=== PATIENT | female | born 1970 | race Caucasian/White ===

== ENCOUNTER 2018-07-29 19:37 | Inpatient (IN) ==
[2018-07-29] MEDS ORDERED: Morphine Inj 4 MG/ML Vial IV.PUSH ONE (20:01)
--- NOTE | 2018-07-29 20:08 | ED ---
HPI General Chief complaint: Pain: Chronic Stated complaint: Flare-Up x2Days Source: patient Mode of arrival: ambulatory Limitations: no limitations History of Present Illness HPI narrative: 48yo F with PMH of questionable psoriatic arthritis presents to the ED with c/o a flare up for 3 days. Pt's entire body is covered with painful erythematous rash including her lips. Pt said she took celecoxib and it did not help. 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 Said it has never been this bad. +Nausea. Denies any fever, chest pain, sob, abdominal pain, focal weakness or numbness. Denies any new medication. Related Data Home Medications Medication Instructions Recorded Confirmed Probiotic 07/29/18 celecoxib 07/29/18 krill oil 07/29/18 milk thistle 07/29/18 Allergies Allergy/AdvReac Type Severity Reaction Status Date / Time bee venom protein (honey bee) Allergy Severe Anaphylaxis Verified 07/29/18 23:16 prednisone Allergy Severe Blister Verified 07/29/18 23:16 Review of Systems ROS: all other systems reviewed are negative [facility] Medical History Medical History Psoriasis (Acute) Psoriatic arthritis (Acute) Social History Social History Substance History: No History of Abuse Second Hand Smoke Exposure: Yes Smoking Status: Former smoker Tobacco Type: Cigarettes How Often Do You Have a Drink Containing Alcohol: Monthly or less Recent Travel in [facility] within the Last 8 Weeks: No Recent Out of Country Travel within the Last 8 Weeks: No Exam Narrative Exam Narrative: GENERAL: 48yo F in moderate distress. SKIN: Diffuse erythematous plaques in her body except for face but worst in bilateral upper extremities. HEAD: Atraumatic. Normocephalic. EYES: Pupils equal and round. No scleral icterus. No injection or drainage. ENT: No nasal bleeding or discharge. Lips are erythematous but not edematous. NECK: Trachea midline. No JVD. CARDIOVASCULAR: Regular rate and rhythm. No murmur appreciated. RESPIRATORY: No accessory muscle use. Clear to auscultation. Breath sounds equal bilaterally. GASTROINTESTINAL: Abdomen soft, non-tender, nondistended. MUSCULOSKELETAL: No obvious deformities. No clubbing. No cyanosis. No edema. NEUROLOGICAL: Awake and alert. No obvious cranial nerve deficits. Motor grossly within normal limits. Normal speech. PSYCHIATRIC: Appropriate mood and affect; insight and judgment normal. Course Initial Documented Vital Signs Temperature 98.0 F 07/29/18 19:39 Pulse Rate 105 H 07/29/18 19:39 Respiratory Rate 18 07/29/18 19:39 Pulse Oximetry 98 07/29/18 19:39 Last Documented Vital Signs Temperature 97.5 F L 07/30/18 00:48 Pulse Rate 98 H 07/30/18 00:48 Respiratory Rate 20 07/30/18 00:48 Blood Pressure 123/57 L 07/30/18 00:48 Pulse Oximetry 99 07/30/18 00:48 Critical Care Time Critical Care Time: Yes Total Critical Care Time: 35 Attestation: Aggregate critical care time was 35 minutes. Time to perform other separately billable procedures was not included in the critical care time. My time did not include minutes spent treating any other patients simultaneously or on activities that did not directly contribute to the patient's treatment. The services I provided to this patient were to treat and/or prevent clinically significant deterioration that could result in: cardiovascular collapse or . I provided critical care services requiring my management, as noted below: Chart data review, documentation time, medication orders and management, vital sign assessments/reviewing monitor data, ordering and reviewing lab tests, ordering and interpreting/reviewing x-rays and diagnostic studies, care of the patient and discussion of the patient with the admitting physicians. Medical Decision Making MDM Narrative Medical decision making narrative: 48yo F who self diagnosed herself for psoriatic arthritis here with diffuse rash that is painful and worsening for 3 days. There is a little weeping in right arm. Rash is diffuse and involves mucosa including lips and vagina. Pt's arms are covered with rash and the only place on her skin that is available for IV access is her foot so I ask the nurse to place on her foot. Labs reviewed, leukocytosis at 33.8. Creatinine elevated at 1.40. Mild hyponatremia at 132. Pt given NS IVF and morphine for pain. Will cover with antibiotics and admit for ID evaluation. Medical Screen Exam Complete: Yes Emergency Medical Condition: Yes Differential Diagnosis Differential Diagnosis: José Miguel Ady syndrome vs. TENS vs. vasculitis Lab Data Result diagrams: 07/29/18 20:41 07/29/18 20:41 Lab Results 07/29/18 07/29/18 07/29/18 Range/Units 20:41 20:41 20:41 CBC w Diff Slide review pending WBC 33.8 H (4.0-11.0) th/mm3 RBC 5.36 H (4.00-5.30) mil/mm3 Hgb 14.4 (11.6-15.3) gm/dL Hct 43.3 (35.0-46.0) % MCV 80.7 (80.0-100.0) fL MCH 26.9 L (27.0-34.0) pg MCHC 33.3 (32.0-36.0) % RDW 16.5 (11.6-17.2) % Plt Count 302 (150-450) th/mm3 MPV 9.5 (7.0-11.0) fL Neut % (Auto) 94.5 H (16.0-70.0) % Lymph % (Auto) 2.1 L (9.0-44.0) % [place] % (Auto) 1.9 (0.0-8.0) % Eos % (Auto) 0.5 (0.0-4.0) % Baso % (Auto) 1.0 (0.0-2.0) % Neut # (Auto) 32.0 H (1.8-7.7) th/mm3 Lymph # (Auto) 0.7 L (1.0-4.8) th/mm3 [place] # (Auto) 0.6 (0.0-0.9) th/mm3 Eos # (Auto) 0.2 (0.0-0.4) th/mm3 Baso # (Auto) 0.3 H (0.0-0.2) th/mm3 WBC Differential Manual diff final Seg Neuts % (Manual) 82 H (16-70) % Band Neuts % (Manual) 7 H (0-6) % Lymphocytes % (Manual) 4 L (9-44) % Monocytes % (Manual) 6 (0-8) % Eosinophils % (Manual) 1 (0-4) % Abs Neuts (Manual) 30.1 H (1.8-7.7) th/mm3 Differential Comment . Platelet Estimate Normal (Normal) Platelet Morphology Normal (Normal) ESR 1 (0-20) mm/hr Sodium 132 L (136-145) meq/L Potassium 4.5 (3.5-5.1) meq/L Chloride 96 L (98-107) meq/L Carbon Dioxide 22.0 (21.0-32.0) meq/L Anion Gap 14 (5-15) meq/L BUN 19 H (7-18) mg/dL Creatinine 1.40 H (0.50-1.00) mg/dL Estimated GFR 40 L (>89) mL/min Random Glucose 117 H (74-106) mg/dL Lactic Acid (0.4-2.0) mmol/L Calcium 8.2 L (8.5-10.1) mg/dL C-Reactive Protein 20.30 H (0.00-0.30) mg/dL 07/29/18 07/30/18 Range/Units 22:40 01:30 CBC w Diff WBC (4.0-11.0) th/mm3 RBC (4.00-5.30) mil/mm3 Hgb (11.6-15.3) gm/dL Hct (35.0-46.0) % MCV (80.0-100.0) fL MCH (27.0-34.0) pg MCHC (32.0-36.0) % RDW (11.6-17.2) % Plt Count (150-450) th/mm3 MPV (7.0-11.0) fL Neut % (Auto) (16.0-70.0) % Lymph % (Auto) (9.0-44.0) % [place] % (Auto) (0.0-8.0) % Eos % (Auto) (0.0-4.0) % Baso % (Auto) (0.0-2.0) % Neut # (Auto) (1.8-7.7) th/mm3 Lymph # (Auto) (1.0-4.8) th/mm3 [place] # (Auto) (0.0-0.9) th/mm3 Eos # (Auto) (0.0-0.4) th/mm3 Baso # (Auto) (0.0-0.2) th/mm3 WBC Differential Seg Neuts % (Manual) (16-70) % Band Neuts % (Manual) (0-6) % Lymphocytes % (Manual) (9-44) % Monocytes % (Manual) (0-8) % Eosinophils % (Manual) (0-4) % Abs Neuts (Manual) (1.8-7.7) th/mm3 Differential Comment Platelet Estimate (Normal) Platelet Morphology (Normal) ESR (0-20) mm/hr Sodium (136-145) meq/L Potassium (3.5-5.1) meq/L Chloride (98-107) meq/L Carbon Dioxide (21.0-32.0) meq/L Anion Gap (5-15) meq/L BUN (7-18) mg/dL Creatinine (0.50-1.00) mg/dL Estimated GFR (>89) mL/min Random Glucose (74-106) mg/dL Lactic Acid 2.7 H 2.9 H (0.4-2.0) mmol/L Calcium (8.5-10.1) mg/dL C-Reactive Protein (0.00-0.30) mg/dL Discharge Plan Discharge Disposition Patient Disposition: 30 Still Patient Discharge Details Diagnosis: Sepsis Physicians Team ED Provider: Tory Raines Primary Care Provider: Krissy Gallardo Attending Provider: Helena Rodgers Status ED Status: Left Department Discharge Information Discharge Date/Time: 07/30/18 00:43
[2018-07-29] MEDS ORDERED: Sod Chloride 0.9% Inj 1,000 ML IV.SIG SCH (20:15)
[2018-07-29 20:56] LABS: Potassium 4.5 meq/L (3.5-5.1)
[2018-07-29 20:58] LABS: Calcium 8.2 mg/dL (8.5-10.1)
[2018-07-29 21:35] LABS: Baso # (Auto) 0.3 th/mm3 (0.0-0.2); Eos # (Auto) 0.2 th/mm3 (0.0-0.4); Eos % (Auto) 0.5 % (0.0-4.0); Hematocrit 43.3 % (35.0-46.0); Hemoglobin 14.4 gm/dL (11.6-15.3); Lymph # (Auto) 0.7 th/mm3 (1.0-4.8); Lymph % (Auto) 2.1 % (9.0-44.0); Mean Corpuscular HGB Conc 33.3 % (32.0-36.0); Mean Corpuscular Hemoglobin 26.9 pg (27.0-34.0); Mean Corpuscular Volume 80.7 fL (80.0-100.0); Mean Platelet Volume 9.5 fL (7.0-11.0); Mono # (Auto) 0.6 th/mm3 (0.0-0.9); Mono % (Auto) 1.9 % (0.0-8.0); Neut % (Auto) 94.5 % (16.0-70.0); Platelet Count 302 th/mm3 (150-450); Red Blood Count 5.36 mil/mm3 (4.00-5.30); Red Cell Distribution Width 16.5 % (11.6-17.2); White Blood Count 33.8 th/mm3 (4.0-11.0)
[2018-07-29 21:36] LABS: Lymphocytes 4 % (9-44); Monocytes 6 % (0-8)
[2018-07-29 21:37] LABS: Eosinophils 1 % (0-4)
[2018-07-29 21:38] LABS: Platelet Estimate Normal (Normal); Platelet Morphology Normal (Normal)
[2018-07-29] MEDS ORDERED: Piperacil/Tazo 3.375 GM Premix 50 ML IV.SIG ONE (22:20)
[2018-07-29] MEDS ORDERED: Vancomycin Consult Pharmacy OTHER PRN (22:24)
[2018-07-29] MEDS ORDERED: Acetaminophen 325 MG Tablet PO PRN (22:26)
[2018-07-29] MEDS ORDERED: Bisacodyl 10 MG Supp RECTAL PRN (22:26)
[2018-07-29] MEDS ORDERED: Vancomycin Inj 1 GM/200 ML PIGGYBACK IV.SIG SCH (23:00)
[2018-07-29 23:14] LABS: C-Reactive Protein 20.3 mg/dL (0.00-0.30)
[2018-07-30] MEDS: Morphine Inj 4 MG/ML Vial IV.PUSH PRN ×2 (01:21→12:16)
[2018-07-30] MEDS: Sod Chloride 0.9% Inj 1,000 ML IV.CONT SCH ×3 (01:45→20:49)
[2018-07-30] MEDS: Vancomycin Inj 1,800 MG in Sodium Chlor 0.9% Inj 500 ML IV.SIG SCH (02:27)
[2018-07-30] MEDS: Piperacil/Tazo 3.375 GM Premix 50 ML IV.SIG SCH ×4 (06:06→23:03)
[2018-07-30] MEDS: Senna/Docusate Sodium 8.6/50 MG Tablet PO SCH ×2 (08:45→21:05)
[2018-07-30] MEDS ORDERED: Sod Chloride 0.9% Inj 1,000 ML IV.SIG ONE (10:52)
--- NOTE | 2018-07-30 11:43 | P.HP ---
History of Present Illness Primary Care Physician: Krissy Gallardo Chief Complaint: Worsening psoriasis History of Present Illness: 48-year-old female with known history of rather significant psoriatic arthritis. 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 She states that her primary medical doctor usually treats her with anti- inflammatory to include Celebrex. Patient states that she is just coming off of a recent exacerbation and then Saturday she started developing a worsening rash which progressively got worse to where it is almost covering her whole entire body. States that she has had significant amount of pain and difficulty with moving. She has been taking Celebrex without any improvement. Patient denies any chest pain, shortness of breath, dyspnea, fever, chills, cough, congestion. She did have one episode of nausea and vomiting. This patient's symptoms did not improve with the use of Celebrex she came to the emergency department for evaluation. Patient workup which shown significant signs of inflammatory response with leukocytosis, elevated C-reactive protein, lactic acid elevation. Patient was admitted for further evaluation and management. - Diagnosis (1) Systemic inflammatory response syndrome (2) Lactic acidosis (3) Leukocytosis (4) Psoriatic arthritis Review of Systems All other systems reviewed negative except as stated in HPI Gastrointestinal: Reports nausea Skin/Breast: Reports change in skin color, Reports changing lesions, Reports lesions, Reports redness, Reports rash, Reports skin pain PMFSH - History History Provided By: Patient - Medical History Medical History: Medical History (Last Reviewed 07/30/18 @ 11:25 by AMANDA Roberts) Psoriasis Psoriatic arthritis - Surgical History Surgical History: Surgical History (Last Updated 07/30/18 @ 11:26 by AMANDA Roberts) History of eye surgery History of tonsillectomy - Family History Family History: Family History (Last Updated 07/30/18 @ 11:26 by AMANDA Roberts) Brother Psoriasis - Tobacco History Second Hand Smoke Exposure: Yes Tobacco Use In Past 30 Days: Yes Smoking Status: Former smoker Tobacco Type: Cigarettes - Alcohol History How Often Do You Have a Drink Containing Alcohol: Monthly or less - Substance Use History Substance History: No History of Abuse - Travel History Recent Travel in the [place] Within the Last 8 Weeks: No Recent Travel Out of the Country Within the Last 8 Weeks: No - Immunization History Tetanus Immunization: Unsure Hx Influenza Vaccine This Season: No Medications and Allergies Active Medications: Active Medications Acetaminophen (Tylenol) 650 mg PO Q4H PRN PRN Reason: Temp > 100.4 Al Hydroxide/Mg Hydroxide (Milk Of Magnesia Liq) 30 ml PO Q12H PRN PRN Reason: Mild Constipation Bisacodyl (Dulcolax Supp) 10 mg RECTAL DAILY PRN PRN Reason: SEVERE CONSITIPATION Sodium Chloride (Ns Inj) 1,000 mls @ 0 mls/hr IV.SIG BOLUS [facility] Last Infusion: 07/29/18 21:30 Dose: Infused Sodium Chloride (Ns Inj) 1,000 mls @ 100 mls/hr IV.CONT .Q10H [facility] Last Admin: 07/30/18 01:45 Dose: 100 mls/hr Piperacillin/Tazobactam/Dextrose (Zosyn 3.375 Gm Premix) 50 mls @ 100 mls/hr IV.SIG Q6H [facility] Last Infusion: 07/30/18 06:43 Dose: Infused Vancomycin HCl 1,800 mg/ (Sodium Chloride) 518 mls @ 250 mls/hr IV.SIG Q24H [facility] Last Infusion: 07/30/18 04:33 Dose: Infused Lactulose (Lactulose Liq) 30 ml PO DAILY PRN PRN Reason: SEVERE CONSITIPATION Miscellaneous Information ([facility] Ordered Lab Info) 0 each OTHER ONCE@ 0245 ONE Stop: 08/02/18 02:46 Morphine Sulfate (Morphine Inj) 4 mg IV.PUSH Q4H PRN PRN Reason: pain 6-10 Last Admin: 07/30/18 01:21 Dose: 4 mg Ondansetron HCl (Zofran Inj) 4 mg IV.PUSH Q6H PRN PRN Reason: NAUSEA OR VOMITING Pharmacy Profile Note (Vancomycin Consult Pharmacy) 1 each OTHER UNSCH PRN PRN Reason: Pharmacy to dose Senna/Docusate Sodium (Claudia-Colace) 1 tab PO BID [facility] Last Admin: 07/30/18 08:45 Dose: Not Given Sennosides (Senokot) 17.2 mg PO Q12H PRN PRN Reason: Moderate Constipation Allergies Allergy/AdvReac Type Severity Reaction Status Date / Time bee venom protein (honey bee) Allergy Severe Anaphylaxis Verified 07/29/18 23:16 prednisone Allergy Severe Blister Verified 07/29/18 23:16 Home Medications Medication Instructions Recorded Confirmed Type Probiotic 07/29/18 History celecoxib 07/29/18 History krill oil 07/29/18 History milk thistle 07/29/18 History Exam Vital signs: Vital Signs 07/29/18 19:39 07/29/18 20:32 07/29/18 21:30 Temperature 98.0 F Pulse Rate 105 H 104 H 91 H Respiratory Rate 18 20 16 Blood Pressure 112/44 L 96/41 L Pulse Oximetry 98 97 97 07/29/18 23:34 07/30/18 00:48 07/30/18 08:00 Temperature 97.5 F L 98.4 F Pulse Rate 104 H 98 H 97 H Respiratory Rate 16 20 18 Blood Pressure 138/58 L 123/57 L 98/53 L Pulse Oximetry 99 97 Intake & Output 07/29/18 07/30/18 07/30/18 18:59 06:59 18:59 Intake Total 1858 / 1858 Balance 1858 / 1858 Weight 97.6 kg Intake: IV 1618 / 1618 Zosyn 3.375 GM Premix 50 ML @ 100 / 100 100 mls/hr IV.SIG Q6H [facility] Rx#: [id number] NS Inj 1,000 ML @ Wide Open IV. 1000 / 1000 SIG BOLUS [facility] Rx#:[id number] Vancomycin Inj 1,800 MG In NS 518 / 518 Inj 500 ML @ 250 mls/hr IV.SIG Q24H [facility] Rx#:[id number] Oral 240 / 240 Other: # Voids 1 Weight On Admission 97.8 kg Narrative: GENERAL: Well-developed, well-nourished, in no acute distress. alert and orientated HEENT: Head is normocephalic without any lesions or masses noted. Facial features are symmetric. Eyes: Pupils equal round reactive to light. Extraocular muscles are intact. Conjunctivae were clear. Oropharyngeal: Pharynx without any erythema edema. Tongue is midline without deviation. Buccal mucosa is moist without any masses or lesions NECK: Supple without any masses. Trachea midline no deviation. No JVD, no bruits are appreciated CARDIAC: Regular rhythm, regular rate. S1/S2 are heard. No murmurs gallops or rubs. LUNGS: Clear to auscultation bilaterally. No wheeze, rhonchi or rales. No use of accessory muscles on inspiration or expiration. ABDOMEN: Soft, nontender. Nondistended. Bowel sounds heard in all 4 quadrants. No organomegaly or masses. Negative rebound, negative guarding EXTREMITIES: No edema, pulses are equal bilaterally. No cyanosis or clubbing. Patient with obvious deformities of the hands and feet NEUROLOGY: Mood and affect appear appropriate. Cranial nerves II through XII grossly intact. Muscle strength 5/5 in upper and lower extremities bilaterally. Deep tendon reflexes are 2+ in upper and lower extremities bilaterally. SKIN: Patient has extensive erythematous, scaly rash all over her body with almost no normal skin exposure. Results - Labs CBC & Chem 7: 07/29/18 20:41 07/29/18 20:41 Labs: Laboratory Results - last 24 hr 07/29/18 07/29/18 07/29/18 20:41 20:41 20:41 CBC w Diff Slide review pending WBC 33.8 H RBC 5.36 H Hgb 14.4 Hct 43.3 MCV 80.7 MCH 26.9 L MCHC 33.3 RDW 16.5 Plt Count 302 MPV 9.5 Neut % (Auto) 94.5 H Lymph % (Auto) 2.1 L [place] % (Auto) 1.9 Eos % (Auto) 0.5 Baso % (Auto) 1.0 Neut # (Auto) 32.0 H Lymph # (Auto) 0.7 L [place] # (Auto) 0.6 Eos # (Auto) 0.2 Baso # (Auto) 0.3 H WBC Differential Manual diff final Seg Neuts % (Manual) 82 H Band Neuts % (Manual) 7 H Lymphocytes % (Manual) 4 L Monocytes % (Manual) 6 Eosinophils % (Manual) 1 Abs Neuts (Manual) 30.1 H Differential Comment . Platelet Estimate Normal Platelet Morphology Normal ESR 1 Sodium 132 L Potassium 4.5 Chloride 96 L Carbon Dioxide 22.0 Anion Gap 14 BUN 19 H Creatinine 1.40 H Estimated GFR 40 L Random Glucose 117 H Lactic Acid Calcium 8.2 L C-Reactive Protein 20.30 H 07/29/18 07/30/18 22:40 01:30 CBC w Diff WBC RBC Hgb Hct MCV MCH MCHC RDW Plt Count MPV Neut % (Auto) Lymph % (Auto) [place] % (Auto) Eos % (Auto) Baso % (Auto) Neut # (Auto) Lymph # (Auto) [place] # (Auto) Eos # (Auto) Baso # (Auto) WBC Differential Seg Neuts % (Manual) Band Neuts % (Manual) Lymphocytes % (Manual) Monocytes % (Manual) Eosinophils % (Manual) Abs Neuts (Manual) Differential Comment Platelet Estimate Platelet Morphology ESR Sodium Potassium Chloride Carbon Dioxide Anion Gap BUN Creatinine Estimated GFR Random Glucose Lactic Acid 2.7 H 2.9 H Calcium C-Reactive Protein Caprini VTE Risk Assessment Caprini VTE Risk Assessment: Moderate/High Risk (score >= 2) Caprini Risk Assessment Model: Point Value = 1 Point Value = 2 Point Value = 3 Point Value = 5 Age 41-60 Minor surgery BMI > 25 kg/m2 Swollen legs Varicose veins or History of unexplained or recurrent spontaneous Oral contraceptives or hormone replacement Sepsis (< 1 month) Serious lung disease, including pneumonia (< 1 month) Abnormal pulmonary function Acute myocardial infarction Congestive heart failure (< 1 month) History of inflammatory bowel disease Medical patient at bed rest Age 61-74 Arthroscopic surgery Major open surgery (> 45 min) Laparoscopic surgery (> 45 min) Malignancy Confined to bed (> 72 hours) Immobilizing plaster cast Central venous access Age >= 75 History of VTE Family history of VTE Factor V Leiden Prothrombin [id number] Lupus anticoagulant Anticardiolipin antibodies Elevated serum homocysteine Heparin-induced thrombocytopenia Other congenital or acquired thrombophilia Stroke (< 1 month) Elective arthroplasty Hip, pelvis, or leg fracture Acute spinal cord injury (< 1 month) Prophylaxis Regimen: Total Risk Factor Score Risk Level Prophylaxis Regimen 0-1 Low Early ambulation 2 Moderate Order ONE of the following: *Sequential Compression Device (SCD) *Heparin 5000 units SQ BID 3-4 Higher Order ONE of the following medications: *Heparin 5000 units SQ TID *Enoxaparin/Lovenox 40 mg SQ daily (WT < 150 kg, CrCl > 30 mL/min) *Enoxaparin/Lovenox 30 mg SQ daily (WT < 150 kg, CrCl > 10-29 mL/min) *Enoxaparin/Lovenox 30 mg SQ BID (WT < 150 kg, CrCl > 30 mL/min) AND/OR *Sequential Compression Device (SCD) 5 or more Highest Order ONE of the following medications: *Heparin 5000 units SQ TID (Preferred with Epidurals) *Enoxaparin/Lovenox 40 mg SQ daily (WT < 150 kg, CrCl > 30 mL/min) *Enoxaparin/Lovenox 30 mg SQ daily (WT < 150 kg, CrCl > 10-29 mL/min) *Enoxaparin/Lovenox 30 mg SQ BID (WT < 150 kg, CrCl > 30 mL/min) AND *Sequential Compression Device (SCD) Assessment and Plan - Assessment (1) Systemic inflammatory response syndrome Code(s): R65.10 - Systemic inflammatory response syndrome (SIRS) of non- infectious origin without acute organ dysfunction Status: Acute (2) Lactic acidosis Code(s): E87.2 - Acidosis Status: Acute (3) Leukocytosis Code(s): D72.829 - Elevated white blood cell count, unspecified Status: Acute (4) Psoriatic arthritis Code(s): L40.50 - Arthropathic psoriasis, unspecified Status: Acute - Plan Systemic inflammatory response syndrome -Patient meets criteria with leukocytosis, lactic acidosis, psoriatic arthritis -Possible cellulitis, however will need to continue evaluate for any other infectious source to include urinalysis, obtain chest x-ray -Blood cultures are negative so far -Patient started on vancomycin and Zosyn -Continue IV fluid -Follow-up CBC, lactic acid Psoriatic arthritis exacerbation -Continue pain control -Start methotrexate 10 mg p.o. as single dose -Start folic acid 1 mg daily Azotemia -Unknown whether chronic versus acute -Continue IV fluid -Monitor renal function DVT prevention -Subcutaneous heparin
[2018-07-30] MEDS: Folic Acid 1 MG Tablet PO SCH (12:16)
[2018-07-30] MEDS: Heparin - SQ 10,000 UNITS/ML Vial SQ SCH ×2 (12:17→21:04)
--- NOTE | 2018-07-30 14:09 | XR ---
EXAM DATE: 07/30/2018 1:57 PM EDT AGE/SEX: 48 years / Female INDICATIONS: . Cough. CLINICAL DATA: This is the patient's initial encounter. Patient reports that signs and symptoms have been present for 2 days and indicates a pain score of 0/10. MEDICAL/SURGICAL HISTORY: . psoriatic arthritis None. COMPARISON: No prior exams available for comparison. FINDINGS: AP and lateral views of the chest demonstrate the lungs to be symmetrically aerated without evidence of mass, infiltrate or effusion. The cardiomediastinal contours are unremarkable. Osseous structure s are intact. CONCLUSION: No acute cardiopulmonary disease. Electronically signed by: Gordon Aguilar MD 07/30/2018 2:07 PM EDT
[2018-07-30 18:12] LABS: Clarity,Urine Cloudy (Clear); Color,Urine Yellow (Yellw/Straw); Glucose,Urine (UA) Negative (Negative); Leukocyte Esterase,Urine Moderate (Negative); Nitrite,Urine Negative (Negative); PH,Urine 5.5 (5.0-8.5)
[2018-07-30 18:13] LABS: Bilirubin,Urine Negative (Negative); Ictotest,Urine Negative (Negative)
[2018-07-30 18:17] LABS: Bacteria,Urine Few /hpf
[2018-07-30 19:06] LABS: Baso # (Auto) 0.3 th/mm3 (0.0-0.2); Baso % (Auto) 0.8 % (0.0-2.0); Eos # (Auto) 1.1 th/mm3 (0.0-0.4); Eos % (Auto) 3.2 % (0.0-4.0); Hematocrit 40.4 % (35.0-46.0); Hemoglobin 13.5 gm/dL (11.6-15.3); Lymph # (Auto) 1.1 th/mm3 (1.0-4.8); Lymph % (Auto) 3.1 % (9.0-44.0); Mean Corpuscular HGB Conc 33.4 % (32.0-36.0); Mean Corpuscular Hemoglobin 26.8 pg (27.0-34.0); Mean Corpuscular Volume 80.2 fL (80.0-100.0); Mean Platelet Volume 8.6 fL (7.0-11.0); Mono # (Auto) 0.3 th/mm3 (0.0-0.9); Neut # (Auto) 32.1 th/mm3 (1.8-7.7); Neut % (Auto) 91.9 % (16.0-70.0); Platelet Count 296 th/mm3 (150-450); Red Blood Count 5.03 mil/mm3 (4.00-5.30); White Blood Count 34.9 th/mm3 (4.0-11.0)
[2018-07-30 19:22] LABS: Chloride 102 meq/L (98-107); Potassium 3.9 meq/L (3.5-5.1); Sodium 135 meq/L (136-145)
[2018-07-30 19:25] LABS: Calcium 7.9 mg/dL (8.5-10.1)
[2018-07-30 19:26] LABS: Albumin 2.1 g/dL (3.4-5.0); Anion Gap 11 meq/L (5-15); Blood Urea Nitrogen 25 mg/dL (7-18); Carbon Dioxide 22.1 meq/L (21.0-32.0); Glucose,Random 161 mg/dL (74-106)
[2018-07-30 19:28] LABS: Lymphocytes 8 % (9-44); Monocytes 3 % (0-8)
[2018-07-30 19:29] LABS: Alanine Aminotransferase 14 U/L (10-53); Aspartate Aminotransferase 14 U/L (15-37); Glomerular Filtration Rate 37 mL/min (>89); Platelet Estimate Normal (Normal); Platelet Morphology Normal (Normal)
[2018-07-30 19:31] LABS: Total Protein 5.8 g/dL (6.4-8.2)
[2018-07-30 19:32] LABS: Alkaline Phosphatase 119 U/L (45-117)
[2018-07-31] MEDS: Vancomycin Inj 1,800 MG in Sodium Chlor 0.9% Inj 500 ML IV.SIG SCH (03:56)
[2018-07-31] MEDS: Piperacil/Tazo 3.375 GM Premix 50 ML IV.SIG SCH ×4 (07:24→23:35)
[2018-07-31] MEDS: Senna/Docusate Sodium 8.6/50 MG Tablet PO SCH ×2 (09:22→21:40)
[2018-07-31] MEDS: Folic Acid 1 MG Tablet PO SCH (09:22)
[2018-07-31] MEDS: Heparin - SQ 10,000 UNITS/ML Vial SQ SCH ×2 (10:01→21:44)
[2018-07-31] MEDS: Sod Chloride 0.9% Inj 1,000 ML IV.CONT SCH ×3 (10:02→23:34)
[2018-07-31 10:48] LABS: Baso # (Auto) 0.1 th/mm3 (0.0-0.2); Baso % (Auto) 0.2 % (0.0-2.0); Eos % (Auto) 3.6 % (0.0-4.0); Hematocrit 34.9 % (35.0-46.0); Lymph % (Auto) 3.5 % (9.0-44.0); Mean Corpuscular HGB Conc 34.5 % (32.0-36.0); Mean Corpuscular Hemoglobin 27.3 pg (27.0-34.0); Mean Corpuscular Volume 79.3 fL (80.0-100.0); Mono # (Auto) 0.1 th/mm3 (0.0-0.9); Mono % (Auto) 0.5 % (0.0-8.0); Neut # (Auto) 26.7 th/mm3 (1.8-7.7); Neut % (Auto) 92.2 % (16.0-70.0); Platelet Count 289 th/mm3 (150-450); Red Cell Distribution Width 17.4 % (11.6-17.2); White Blood Count 28.9 th/mm3 (4.0-11.0)
[2018-07-31 12:02] LABS: Albumin 1.9 g/dL (3.4-5.0); Anion Gap 11 meq/L (5-15); Aspartate Aminotransferase 17 U/L (15-37); Blood Urea Nitrogen 20 mg/dL (7-18); Calcium 7.6 mg/dL (8.5-10.1); Carbon Dioxide 21.2 meq/L (21.0-32.0); Chloride 106 meq/L (98-107); Glomerular Filtration Rate 54 mL/min (>89); Potassium 3.6 meq/L (3.5-5.1); Sodium 138 meq/L (136-145)
[2018-07-31 12:03] LABS: Glucose,Random 158 mg/dL (74-106)
[2018-07-31 12:10] LABS: Alanine Aminotransferase 11 U/L (10-53); Alkaline Phosphatase 101 U/L (45-117); Total Protein 5.4 g/dL (6.4-8.2)
--- NOTE | 2018-07-31 12:50 | P.PN ---
Subjective Interval history: 48-year-old female who is seen and examined today for follow-up on exacerbation of psoriatic arthritis with cutaneous lesions. Upon evaluating patient date she actually looks much improved. Patient states that she feels better, however skin is starting to develop significant itch. Vital signs are stable, patient remains afebrile. Physical Exam Vital signs: Vital Signs 07/30/18 16:00 07/30/18 20:00 07/31/18 00:00 Temperature 96.7 F L 96.7 F L 96.6 F L Pulse Rate 87 87 87 Respiratory Rate 18 20 20 Blood Pressure 113/52 L 118/56 L 109/69 Pulse Oximetry 97 96 100 07/31/18 04:00 07/31/18 07:34 07/31/18 11:10 Temperature 96.4 F L 96.6 F L 96.7 F L Pulse Rate 81 81 80 Respiratory Rate 20 20 20 Blood Pressure 110/56 L 125/58 L 114/56 L Pulse Oximetry 98 97 98 Intake & Output 07/30/18 07/31/18 07/31/18 18:59 06:59 18:59 Intake Total 2875 / 2875 50 / 50 1568 / 1568 Output Total 175 / 175 Balance 2875 / 2875 -125 / -125 1568 / 1568 Weight 100.6 kg Intake: IV 2150 / 2150 50 / 50 1568 / 1568 NS Inj 1,000 ML @ 100 mls/hr IV 1000 / 1000 1000 / 1000 .CONT .Q10H [facility] Rx#:[id number] Zosyn 3.375 GM Premix 50 ML @ 150 / 150 50 / 50 50 / 50 100 mls/hr IV.SIG Q6H [facility] Rx#: [id number] NS Inj 1,000 ML @ Wide Open IV. 1000 / 1000 SIG BOLUS ONE Rx#:[id number] Vancomycin Inj 1,800 MG In NS 518 / 518 Inj 500 ML @ 250 mls/hr IV.SIG Q24H [facility] Rx#:[id number] Oral 725 / 725 0 / 0 Output: Urine 175 / 175 Other: # Voids 2 1 # Bowel Movements 0 Narrative: GENERAL: Well-developed, well-nourished, in no acute distress. alert and orientated HEENT: Head is normocephalic without any lesions or masses noted. Facial features are symmetric. Eyes: Extraocular muscles are intact. Conjunctivae were clear. NECK: Supple without any masses. Trachea midline no deviation. No JVD, CARDIAC: Regular rhythm, regular rate. S1/S2 are heard. No murmurs gallops or rubs. LUNGS: Clear to auscultation bilaterally. No wheeze, rhonchi or rales. No use of accessory muscles on inspiration or expiration. ABDOMEN: Soft, nontender. Nondistended. Bowel sounds heard in all 4 quadrants. No organomegaly or masses. Negative rebound, negative guarding EXTREMITIES: No edema, pulses are equal bilaterally. No cyanosis or clubbing. Patient with obvious deformities of the hands and feet NEUROLOGY: Mood and affect appear appropriate. Cranial nerves II through XII grossly intact. Moving all extremities, speech is clear SKIN: Patient has extensive erythematous, scaly rash all over her body which does appear to have improvement. Patient does not appear to be edematous. Rashes not is erythematous. Lesions are more dry. Results - Labs CBC & Chem 7: 07/31/18 10:30 07/31/18 10:30 Laboratory Results - last 24 hr 07/30/18 07/30/18 07/30/18 18:00 18:55 18:55 CBC w Diff Slide review pending WBC 34.9 H RBC 5.03 Hgb 13.5 Hct 40.4 MCV 80.2 MCH 26.8 L MCHC 33.4 RDW 17.0 Plt Count 296 MPV 8.6 Neut % (Auto) 91.9 H Lymph % (Auto) 3.1 L [place] % (Auto) 1.0 Eos % (Auto) 3.2 Baso % (Auto) 0.8 Neut # (Auto) 32.1 H Lymph # (Auto) 1.1 [place] # (Auto) 0.3 Eos # (Auto) 1.1 H Baso # (Auto) 0.3 H WBC Differential Manual diff final Seg Neuts % (Manual) 63 Band Neuts % (Manual) 26 H Lymphocytes % (Manual) 8 L Monocytes % (Manual) 3 Abs Neuts (Manual) 31.1 H Differential Comment . Platelet Estimate Normal Platelet Morphology Normal Sodium 135 L Potassium 3.9 Chloride 102 Carbon Dioxide 22.1 Anion Gap 11 BUN 25 H Creatinine 1.50 H Estimated GFR 37 L Random Glucose 161 H Lactic Acid Calcium 7.9 L Total Bilirubin 0.4 AST 14 L ALT 14 Alkaline Phosphatase 119 H Total Protein 5.8 L Albumin 2.1 L Urine Color Yellow Urine Clarity Cloudy H Urine pH 5.5 Ur Specific [place] 1.020 Urine Protein 30 H Urine Glucose (UA) Negative Urine Ketones Trace H Urine Occult Blood Large H Urine Nitrate Negative Urine Bilirubin Negative Urine Ictotest Negative Urine Urobilinogen 1.0 Ur Leukocyte Esterase Moderate H Urine RBC 15-50 H Urine WBC 9-20 H Ur Squamous Epith Cells 6-10 H Urine Bacteria Few H Micro UA Comment Culture indicated Ur Microscopic Review Microscopic reviewed Urine Culture Comments Culture indicated 07/30/18 07/31/18 07/31/18 18:55 10:30 10:30 CBC w Diff Auto diff final WBC 28.9 H RBC 4.40 Hgb 12.0 Hct 34.9 L MCV 79.3 L MCH 27.3 MCHC 34.5 RDW 17.4 H Plt Count 289 MPV 9.0 Neut % (Auto) 92.2 H Lymph % (Auto) 3.5 L [place] % (Auto) 0.5 Eos % (Auto) 3.6 Baso % (Auto) 0.2 Neut # (Auto) 26.7 H Lymph # (Auto) 1.0 [place] # (Auto) 0.1 Eos # (Auto) 1.0 H Baso # (Auto) 0.1 WBC Differential . Seg Neuts % (Manual) Band Neuts % (Manual) Lymphocytes % (Manual) Monocytes % (Manual) Abs Neuts (Manual) Differential Comment . Platelet Estimate Platelet Morphology Sodium 138 Potassium 3.6 Chloride 106 Carbon Dioxide 21.2 Anion Gap 11 BUN 20 H Creatinine 1.08 H Estimated GFR 54 L Random Glucose 158 H Lactic Acid 3.2 H Calcium 7.6 L Total Bilirubin 0.4 AST 17 ALT 11 Alkaline Phosphatase 101 Total Protein 5.4 L Albumin 1.9 L Urine Color Urine Clarity Urine pH Ur Specific [place] Urine Protein Urine Glucose (UA) Urine Ketones Urine Occult Blood Urine Nitrate Urine Bilirubin Urine Ictotest Urine Urobilinogen Ur Leukocyte Esterase Urine RBC Urine WBC Ur Squamous Epith Cells Urine Bacteria Micro UA Comment Ur Microscopic Review Urine Culture Comments 07/31/18 10:30 CBC w Diff WBC RBC Hgb Hct MCV MCH MCHC RDW Plt Count MPV Neut % (Auto) Lymph % (Auto) [place] % (Auto) Eos % (Auto) Baso % (Auto) Neut # (Auto) Lymph # (Auto) [place] # (Auto) Eos # (Auto) Baso # (Auto) WBC Differential Seg Neuts % (Manual) Band Neuts % (Manual) Lymphocytes % (Manual) Monocytes % (Manual) Abs Neuts (Manual) Differential Comment Platelet Estimate Platelet Morphology Sodium Potassium Chloride Carbon Dioxide Anion Gap BUN Creatinine Estimated GFR Random Glucose Lactic Acid 2.7 H Calcium Total Bilirubin AST ALT Alkaline Phosphatase Total Protein Albumin Urine Color Urine Clarity Urine pH Ur Specific [place] Urine Protein Urine Glucose (UA) Urine Ketones Urine Occult Blood Urine Nitrate Urine Bilirubin Urine Ictotest Urine Urobilinogen Ur Leukocyte Esterase Urine RBC Urine WBC Ur Squamous Epith Cells Urine Bacteria Micro UA Comment Ur Microscopic Review Urine Culture Comments Microbiology 07/29/18 22:45 Blood - Peripheral Aerobic Blood Culture - Preliminary No growth in 2 days 07/29/18 22:45 Blood - Peripheral Anaerobic Blood Culture - Preliminary No growth in 2 days 07/29/18 22:40 Blood - Peripheral Aerobic Blood Culture - Preliminary No growth in 2 days 07/29/18 22:40 Blood - Peripheral Anaerobic Blood Culture - Preliminary No growth in 2 days - Imaging Impressions Chest X-Ray 07/30/18 00:00 CONCLUSION: No acute cardiopulmonary disease. Assessment and Plan - Assessment (1) Systemic inflammatory response syndrome Code(s): R65.10 - Systemic inflammatory response syndrome (SIRS) of non- infectious origin without acute organ dysfunction Status: Acute (2) Lactic acidosis Code(s): E87.2 - Acidosis Status: Acute (3) Leukocytosis Code(s): D72.829 - Elevated white blood cell count, unspecified Status: Acute (4) Psoriatic arthritis Code(s): L40.50 - Arthropathic psoriasis, unspecified Status: Acute - Plan Sepsis, improving -Patient meets criteria with leukocytosis, lactic acidosis, psoriatic arthritis , urinary tract infection -Chest x-ray did not indicate any acute abnormality. -Blood cultures are negative for 2 days -Continue vancomycin and Zosyn -Continue IV fluid -Follow-up CBC, lactic acid -Urinalysis does indicate urinary tract infection, continue to follow urine culture for appropriate robotic Psoriatic arthritis exacerbation -Continue pain control -Continue methotrexate 10 mg p.o. weekly -Continue folic acid 1 mg daily Azotemia -Unknown whether chronic versus acute -Continue IV fluid -Monitor renal function DVT prevention -Subcutaneous heparin
[2018-08-01] MEDS: Vancomycin Inj 1,800 MG in Sodium Chlor 0.9% Inj 500 ML IV.SIG SCH (03:30)
[2018-08-01] MEDS: Piperacil/Tazo 3.375 GM Premix 50 ML IV.SIG SCH ×4 (06:32→23:50)
[2018-08-01] MEDS: Sod Chloride 0.9% Inj 1,000 ML IV.CONT SCH ×3 (06:50→19:22)
[2018-08-01 10:21] LABS: Baso # (Auto) 0.1 th/mm3 (0.0-0.2); Baso % (Auto) 0.3 % (0.0-2.0); Eos # (Auto) 0.7 th/mm3 (0.0-0.4); Eos % (Auto) 3.8 % (0.0-4.0); Hematocrit 36.6 % (35.0-46.0); Hemoglobin 11.9 gm/dL (11.6-15.3); Lymph # (Auto) 1.2 th/mm3 (1.0-4.8); Lymph % (Auto) 6.2 % (9.0-44.0); Mean Corpuscular HGB Conc 32.5 % (32.0-36.0); Mean Corpuscular Hemoglobin 26.2 pg (27.0-34.0); Mean Corpuscular Volume 80.8 fL (80.0-100.0); Mean Platelet Volume 8.4 fL (7.0-11.0); Mono # (Auto) 0.1 th/mm3 (0.0-0.9); Mono % (Auto) 0.5 % (0.0-8.0); Neut # (Auto) 16.6 th/mm3 (1.8-7.7); Neut % (Auto) 89.2 % (16.0-70.0); Platelet Count 293 th/mm3 (150-450); Red Blood Count 4.53 mil/mm3 (4.00-5.30); Red Cell Distribution Width 17.3 % (11.6-17.2); White Blood Count 18.7 th/mm3 (4.0-11.0)
[2018-08-01 10:30] LABS: Chloride 108 meq/L (98-107); Potassium 3.6 meq/L (3.5-5.1); Sodium 140 meq/L (136-145)
[2018-08-01 10:33] LABS: Calcium 7.5 mg/dL (8.5-10.1)
[2018-08-01 10:34] LABS: Albumin 1.9 g/dL (3.4-5.0); Anion Gap 10 meq/L (5-15); Carbon Dioxide 22.4 meq/L (21.0-32.0); Glucose,Random 159 mg/dL (74-106)
[2018-08-01 10:47] LABS: Alanine Aminotransferase 20 U/L (10-53); Alkaline Phosphatase 111 U/L (45-117); Aspartate Aminotransferase 32 U/L (15-37); Blood Urea Nitrogen 14 mg/dL (7-18); Glomerular Filtration Rate 66 mL/min (>89); Total Protein 5.4 g/dL (6.4-8.2)
--- NOTE | 2018-08-01 11:23 | P.PN ---
Subjective Interval history: 48-year-old female who is seen and examined today for follow-up on psoriatic arthritis, sepsis. Patient clinically improving on a daily basis. Patient states that her skin is starting to get tight now because of the dryness. Patient remains afebrile. Vital signs are stable. Physical Exam Vital signs: Vital Signs 07/31/18 15:32 07/31/18 20:00 07/31/18 21:00 Temperature 96.9 F L 97.1 F L Pulse Rate 84 77 81 Respiratory Rate 20 20 Blood Pressure 128/59 L 111/53 L Pulse Oximetry 98 98 08/01/18 00:00 08/01/18 04:00 08/01/18 08:00 Temperature 97.3 F L 96.5 F L 96.8 F L Pulse Rate 86 79 89 Respiratory Rate 20 20 16 Blood Pressure 115/58 L 117/57 L 123/58 L Pulse Oximetry 100 100 97 Intake & Output 07/31/18 08/01/18 08/01/18 18:59 06:59 18:59 Intake Total 2578 / 2578 1568 / 1568 50 / 50 Balance 2578 / 2578 1568 / 1568 50 / 50 Intake: IV 1618 / 1618 1568 / 1568 50 / 50 NS Inj 1,000 ML @ 150 mls/hr IV 1000 / 1000 1000 / 1000 .CONT .Q6H40M [facility] Rx#: [id number] Zosyn 3.375 GM Premix 50 ML @ 100 / 100 50 / 50 50 / 50 100 mls/hr IV.SIG Q6H [facility] Rx#: [id number] Vancomycin Inj 1,800 MG In NS 518 / 518 518 / 518 Inj 500 ML @ 250 mls/hr IV.SIG Q24H [facility] Rx#:[id number] Oral 960 / 960 Other: # Voids 3 1 Date of Last Bowel Movement 07/29/18 Narrative: GENERAL: Well-developed, well-nourished, in no acute distress. alert and orientated HEENT: Head is normocephalic without any lesions or masses noted. Facial features are symmetric. Eyes: Extraocular muscles are intact. Conjunctivae were clear. NECK: Supple without any masses. Trachea midline no deviation. No JVD, CARDIAC: Regular rhythm, regular rate. S1/S2 are heard. No murmurs gallops or rubs. LUNGS: Clear to auscultation bilaterally. No wheeze, rhonchi or rales. No use of accessory muscles on inspiration or expiration. ABDOMEN: Soft, nontender. Nondistended. Bowel sounds heard in all 4 quadrants. No organomegaly or masses. Negative rebound, negative guarding EXTREMITIES: No edema, pulses are equal bilaterally. No cyanosis or clubbing. Patient with obvious deformities of the hands and feet NEUROLOGY: Mood and affect appear appropriate. Cranial nerves II through XII grossly intact. Moving all extremities, speech is clear SKIN: Patient has extensive erythematous, scaly rash all over her body which does appear to have improvement. Patient does not appear to be edematous. Rashes not is erythematous. Lesions are more dry. Results - Labs CBC & Chem 7: 08/01/18 09:57 08/01/18 09:57 Laboratory Results - last 24 hr 07/31/18 07/31/18 07/31/18 10:30 10:30 13:12 CBC w Diff WBC RBC Hgb Hct MCV MCH MCHC RDW Plt Count MPV Neut % (Auto) Lymph % (Auto) [place] % (Auto) Eos % (Auto) Baso % (Auto) Neut # (Auto) Lymph # (Auto) [place] # (Auto) Eos # (Auto) Baso # (Auto) WBC Differential Differential Comment Sodium 138 Potassium 3.6 Chloride 106 Carbon Dioxide 21.2 Anion Gap 11 BUN 20 H Creatinine 1.08 H Estimated GFR 54 L Random Glucose 158 H Lactic Acid 2.7 H 2.7 H Calcium 7.6 L Total Bilirubin 0.4 AST 17 ALT 11 Alkaline Phosphatase 101 Total Protein 5.4 L Albumin 1.9 L 08/01/18 08/01/18 09:57 09:57 CBC w Diff Auto diff final WBC 18.7 H RBC 4.53 Hgb 11.9 Hct 36.6 MCV 80.8 MCH 26.2 L MCHC 32.5 RDW 17.3 H Plt Count 293 MPV 8.4 Neut % (Auto) 89.2 H Lymph % (Auto) 6.2 L [place] % (Auto) 0.5 Eos % (Auto) 3.8 Baso % (Auto) 0.3 Neut # (Auto) 16.6 H Lymph # (Auto) 1.2 [place] # (Auto) 0.1 Eos # (Auto) 0.7 H Baso # (Auto) 0.1 WBC Differential . Differential Comment . Sodium 140 Potassium 3.6 Chloride 108 H Carbon Dioxide 22.4 Anion Gap 10 BUN 14 Creatinine 0.91 Estimated GFR 66 L Random Glucose 159 H Lactic Acid Calcium 7.5 L Total Bilirubin 0.3 AST 32 ALT 20 Alkaline Phosphatase 111 Total Protein 5.4 L Albumin 1.9 L Microbiology 07/29/18 22:45 Blood - Peripheral Aerobic Blood Culture - Preliminary Streptococcus species 07/29/18 22:45 Blood - Peripheral Anaerobic Blood Culture - Preliminary No growth in 3 days 07/29/18 22:40 Blood - Peripheral Aerobic Blood Culture - Preliminary No growth in 3 days 07/29/18 22:40 Blood - Peripheral Anaerobic Blood Culture - Preliminary No growth in 3 days 07/30/18 18:00 Clean Catch Urine Urine Culture - Final No growth in 48 hours Assessment and Plan - Assessment (1) Systemic inflammatory response syndrome Code(s): R65.10 - Systemic inflammatory response syndrome (SIRS) of non- infectious origin without acute organ dysfunction Status: Acute (2) Lactic acidosis Code(s): E87.2 - Acidosis Status: Acute (3) Leukocytosis Code(s): D72.829 - Elevated white blood cell count, unspecified Status: Acute (4) Psoriatic arthritis Code(s): L40.50 - Arthropathic psoriasis, unspecified Status: Acute - Plan Sepsis, improving -Patient meets criteria with leukocytosis, lactic acidosis, psoriatic arthritis , urinary tract infection -Chest x-ray did not indicate any acute abnormality. -Blood cultures have become +1/4 with Streptococcus species -Continue vancomycin and Zosyn, until sensitivities -Continue IV fluid -Follow-up CBC, lactic acid -Urinalysis does indicate urinary tract infection, urine culture shows no growth for 48 hours Bacteremia -1/4+ blood cultures with Streptococcus species -Continue to follow culture reports -Obtain repeat blood culture and need to wait for at least negative for 2 days before discharge Psoriatic arthritis exacerbation -Continue pain control -Continue methotrexate 10 mg p.o. weekly -Continue folic acid 1 mg daily Azotemia, resolved -Unknown whether chronic versus acute -Continue IV fluid -Monitor renal function DVT prevention -Subcutaneous heparin Discharge Planning: Discharge planning when follow-up cultures are negative for 2 days
[2018-08-01] MEDS: Heparin - SQ 10,000 UNITS/ML Vial SQ SCH ×2 (11:28→21:43)
[2018-08-01] MEDS: Folic Acid 1 MG Tablet PO SCH (11:29)
[2018-08-01] MEDS: Senna/Docusate Sodium 8.6/50 MG Tablet PO SCH ×2 (11:29→21:37)
[2018-08-02] MEDS ORDERED: Pharmacy Ordered Lab Info OTHER ONE (02:45)
[2018-08-02] MEDS: Sod Chloride 0.9% Inj 1,000 ML IV.CONT SCH ×3 (04:59→12:12)
[2018-08-02] MEDS: Piperacil/Tazo 3.375 GM Premix 50 ML IV.SIG SCH ×4 (05:00→22:23)
[2018-08-02] MEDS: Vancomycin Inj 1,800 MG in Sodium Chlor 0.9% Inj 500 ML IV.SIG SCH (06:31)
[2018-08-02 07:21] LABS: Baso # (Auto) 0.1 th/mm3 (0.0-0.2); Baso % (Auto) 0.5 % (0.0-2.0); Eos # (Auto) 0.7 th/mm3 (0.0-0.4); Eos % (Auto) 5.6 % (0.0-4.0); Hematocrit 33.9 % (35.0-46.0); Hemoglobin 11.6 gm/dL (11.6-15.3); Lymph # (Auto) 1.4 th/mm3 (1.0-4.8); Lymph % (Auto) 11.7 % (9.0-44.0); Mean Corpuscular HGB Conc 34.4 % (32.0-36.0); Mean Corpuscular Hemoglobin 27.6 pg (27.0-34.0); Mean Corpuscular Volume 80.1 fL (80.0-100.0); Mean Platelet Volume 8.6 fL (7.0-11.0); Mono # (Auto) 0.1 th/mm3 (0.0-0.9); Mono % (Auto) 0.9 % (0.0-8.0); Neut % (Auto) 81.3 % (16.0-70.0); Platelet Count 268 th/mm3 (150-450); Red Blood Count 4.23 mil/mm3 (4.00-5.30); Red Cell Distribution Width 17.6 % (11.6-17.2); White Blood Count 12.3 th/mm3 (4.0-11.0)
--- NOTE | 2018-08-02 09:49 | P.PN ---
Subjective Interval history: 48-year-old female who is seen and examined today for follow-up on sepsis, psoriatic arthritis exacerbation. Patient is doing much better. Leukocytosis has improved. Patient remains afebrile. Clinically she is improving. Patient states that she still feels like "crap". Vital signs are stable, patient remains afebrile. Physical Exam Vital signs: Vital Signs 08/01/18 12:00 08/01/18 16:00 08/01/18 20:00 Temperature 97.8 F 96.7 F L 96.2 F L Pulse Rate 89 84 84 Respiratory Rate 12 20 20 Blood Pressure 124/59 L 114/55 L 107/55 L Pulse Oximetry 98 99 99 08/01/18 20:15 08/02/18 00:00 08/02/18 04:00 Temperature 97.8 F 97.6 F Pulse Rate 79 79 78 Respiratory Rate 20 20 Blood Pressure 131/67 110/53 L Pulse Oximetry 100 99 08/02/18 08:00 Temperature 96.4 F L Pulse Rate 83 Respiratory Rate 17 Blood Pressure 111/51 L Pulse Oximetry 98 Intake & Output 08/01/18 08/02/18 08/02/18 18:59 06:59 18:59 Intake Total 1150 / 1150 2500 / 2500 Balance 1150 / 1150 2500 / 2500 Weight 101.9 kg Intake: IV 1150 / 1150 1100 / 1100 NS Inj 1,000 ML @ 150 mls/hr IV 1000 / 1000 1000 / 1000 .CONT .Q6H40M [facility] Rx#: [id number] Zosyn 3.375 GM Premix 50 ML @ 150 / 150 100 / 100 100 mls/hr IV.SIG Q6H [facility] Rx#: [id number] Oral 1400 / 1400 Other: # Voids 3 Date of Last Bowel Movement 08/01/18 # Bowel Movements 1 Narrative: GENERAL: Well-developed, well-nourished, in no acute distress. alert and orientated HEENT: Head is normocephalic without any lesions or masses noted. Facial features are symmetric. Eyes: Extraocular muscles are intact. Conjunctivae were clear. NECK: Supple without any masses. Trachea midline no deviation. No JVD, CARDIAC: Regular rhythm, regular rate. S1/S2 are heard. No murmurs gallops or rubs. LUNGS: Clear to auscultation bilaterally. No wheeze, rhonchi or rales. No use of accessory muscles on inspiration or expiration. ABDOMEN: Soft, nontender. Nondistended. Bowel sounds heard in all 4 quadrants. No organomegaly or masses. Negative rebound, negative guarding EXTREMITIES: No edema, pulses are equal bilaterally. No cyanosis or clubbing. Patient with obvious deformities of the hands and feet NEUROLOGY: Mood and affect appear appropriate. Cranial nerves II through XII grossly intact. Moving all extremities, speech is clear SKIN: Patient has extensive erythematous, scaly rash all over her body which does appear to have significant improvement. Edema has significantly improved. Lesions are dry and now scaly Results - Labs CBC & Chem 7: 08/02/18 06:20 08/01/18 09:57 Laboratory Results - last 24 hr 08/01/18 08/01/18 08/01/18 09:57 09:57 14:14 CBC w Diff Auto diff final WBC 18.7 H RBC 4.53 Hgb 11.9 Hct 36.6 MCV 80.8 MCH 26.2 L MCHC 32.5 RDW 17.3 H Plt Count 293 MPV 8.4 Neut % (Auto) 89.2 H Lymph % (Auto) 6.2 L [place] % (Auto) 0.5 Eos % (Auto) 3.8 Baso % (Auto) 0.3 Neut # (Auto) 16.6 H Lymph # (Auto) 1.2 [place] # (Auto) 0.1 Eos # (Auto) 0.7 H Baso # (Auto) 0.1 WBC Differential . Differential Comment . Sodium 140 Potassium 3.6 Chloride 108 H Carbon Dioxide 22.4 Anion Gap 10 BUN 14 Creatinine 0.91 Estimated GFR 66 L Random Glucose 159 H Lactic Acid 2.4 H Calcium 7.5 L Total Bilirubin 0.3 AST 32 ALT 20 Alkaline Phosphatase 111 Total Protein 5.4 L Albumin 1.9 L 08/01/18 08/02/18 17:15 06:20 CBC w Diff Auto diff final WBC 12.3 H RBC 4.23 Hgb 11.6 Hct 33.9 L MCV 80.1 MCH 27.6 MCHC 34.4 RDW 17.6 H Plt Count 268 MPV 8.6 Neut % (Auto) 81.3 H Lymph % (Auto) 11.7 [place] % (Auto) 0.9 Eos % (Auto) 5.6 H Baso % (Auto) 0.5 Neut # (Auto) 10.0 H Lymph # (Auto) 1.4 [place] # (Auto) 0.1 Eos # (Auto) 0.7 H Baso # (Auto) 0.1 WBC Differential . Differential Comment . Sodium Potassium Chloride Carbon Dioxide Anion Gap BUN Creatinine Estimated GFR Random Glucose Lactic Acid 1.8 Calcium Total Bilirubin AST ALT Alkaline Phosphatase Total Protein Albumin Microbiology 07/29/18 22:45 Blood - Peripheral Aerobic Blood Culture - Final Viridans streptococcus grp 07/29/18 22:45 Blood - Peripheral Anaerobic Blood Culture - Preliminary No growth in 3 days 07/29/18 22:40 Blood - Peripheral Aerobic Blood Culture - Preliminary No growth in 3 days 07/29/18 22:40 Blood - Peripheral Anaerobic Blood Culture - Preliminary No growth in 3 days 07/30/18 18:00 Clean Catch Urine Urine Culture - Final No growth in 48 hours Assessment and Plan - Assessment (1) Systemic inflammatory response syndrome Code(s): R65.10 - Systemic inflammatory response syndrome (SIRS) of non- infectious origin without acute organ dysfunction Status: Acute (2) Lactic acidosis Code(s): E87.2 - Acidosis Status: Acute (3) Leukocytosis Code(s): D72.829 - Elevated white blood cell count, unspecified Status: Acute (4) Psoriatic arthritis Code(s): L40.50 - Arthropathic psoriasis, unspecified Status: Acute - Plan Sepsis, resolved -Patient meets criteria with leukocytosis, lactic acidosis, psoriatic arthritis , urinary tract infection -Chest x-ray did not indicate any acute abnormality. -Blood cultures have become +1/4 with viridans strep -Continue vancomycin and Zosyn, until sensitivities -Continue IV fluid -Follow-up CBC, lactic acid -Urinalysis does indicate urinary tract infection, urine culture shows no growth for 48 hours Bacteremia -1/4+ blood cultures with viridans strep -Obtain echocardiogram -Repeat culture has been done Psoriatic arthritis exacerbation -Continue pain control -Continue methotrexate 10 mg p.o. weekly -Continue folic acid 1 mg daily Azotemia, resolved -Unknown whether chronic versus acute -Continue IV fluid -Monitor renal function DVT prevention -Subcutaneous heparin
[2018-08-02] MEDS: Heparin - SQ 10,000 UNITS/ML Vial SQ SCH ×2 (10:05→22:23)
[2018-08-02] MEDS: Folic Acid 1 MG Tablet PO SCH (10:05)
[2018-08-02] MEDS: Senna/Docusate Sodium 8.6/50 MG Tablet PO SCH ×2 (10:06→22:23)
--- NOTE | 2018-08-02 20:10 | P.CONID ---
History of Present Illness Service: ID Consult date: 08/02/18 Requesting Physician: Esvin Dhaliwal Reason for Consult: positive blood clx Primary Care Provider: Krissy Gallardo Family Provider: Krissy Gallardo Chief Complaint: Worsening psoriasis History of Present Illness: 48 yo F with severe psoriasis involving entire skin and crippling psoriatic arthritis presented with few days of severe erythematous rash with desquamation and some open maceratesd wounds on adomen, R elbow and bl legs Rash got somewhat better after MTX was srarted One of blood clx is positive for viridance strep WBC up to 35 K on presentation, down to 12 K now afebrile On Review of Systems All other systems reviewed negative except as stated in HPI PMFSH - History History Provided By: Patient - Medical History Medical History: Medical History (Last Reviewed 08/03/18 @ 01:52 by Brenda Baca MD) Psoriasis Psoriatic arthritis - Surgical History Surgical History: Surgical History (Last Reviewed 08/03/18 @ 01:52 by Brenda Baca MD) History of eye surgery History of tonsillectomy - Family History Family History: Family History (Last Reviewed 08/03/18 @ 01:52 by Brenda Baca MD) Brother Psoriasis - Social History I have reviewed the patient's Social History: Yes - Tobacco History Second Hand Smoke Exposure: Yes Tobacco Use In Past 30 Days: Yes Smoking Status: Former smoker Tobacco Type: Cigarettes - Alcohol History How Often Do You Have a Drink Containing Alcohol: Monthly or less - Substance Use History Substance History: No History of Abuse - Travel History Recent Travel in the [place] Within the Last 8 Weeks: No Recent Travel Out of the Country Within the Last 8 Weeks: No - Immunization History Tetanus Immunization: Unsure Hx Influenza Vaccine This Season: No Medications and Allergies Active Medications: Active Medications Acetaminophen (Tylenol) 650 mg PO Q4H PRN PRN Reason: Temp > 100.4 Hydrocodone Bitart/Acetaminophen ([place] 10/325) 1 tab PO Q6H PRN PRN Reason: PAIN SCALE 6 TO 10 Last Admin: 08/02/18 13:46 Dose: 1 tab Hydrocodone Bitart/Acetaminophen ([place] 5/325) 1 tab PO Q6H PRN PRN Reason: PAIN SCALE 1 TO 5 Al Hydroxide/Mg Hydroxide (Milk Of Magnesia Liq) 30 ml PO Q12H PRN PRN Reason: Mild Constipation Bisacodyl (Dulcolax Supp) 10 mg RECTAL DAILY PRN PRN Reason: SEVERE CONSITIPATION Folic Acid (Folic Acid) 1 mg PO DAILY [facility] Last Admin: 08/02/18 10:05 Dose: 1 mg Heparin Sodium (Porcine) (Heparin Inj) 5,000 units SQ Q12HR [facility] Last Admin: 08/02/18 10:05 Dose: 5,000 units Piperacillin/Tazobactam/Dextrose (Zosyn 3.375 Gm Premix) 50 mls @ 100 mls/hr IV.SIG Q6H [facility] Last Infusion: 08/02/18 17:46 Dose: Infused Vancomycin HCl 1,800 mg/ (Sodium Chloride) 518 mls @ 250 mls/hr IV.SIG Q18H [facility] Lactulose (Lactulose Liq) 30 ml PO DAILY PRN PRN Reason: SEVERE CONSITIPATION Methotrexate (Rheumatrex) 10 mg PO Q7D [facility] Last Admin: 07/30/18 16:37 Dose: 10 mg Miscellaneous Information ([facility] Ordered Lab Info) 1 each OTHER ONCE [facility] Morphine Sulfate (Morphine Inj) 4 mg IV.PUSH Q4H PRN PRN Reason: BREAKTHROUGH PAIN Last Admin: 07/30/18 12:16 Dose: 4 mg Ondansetron HCl (Zofran Inj) 4 mg IV.PUSH Q6H PRN PRN Reason: NAUSEA OR VOMITING Last Admin: 07/31/18 01:24 Dose: 4 mg Pharmacy Profile Note (Vancomycin Consult Pharmacy) 1 each OTHER UNSCH PRN PRN Reason: Pharmacy to dose Senna/Docusate Sodium (Claudia-Colace) 1 tab PO BID [facility] Last Admin: 08/02/18 10:06 Dose: Not Given Sennosides (Senokot) 17.2 mg PO Q12H PRN PRN Reason: Moderate Constipation Allergies Allergy/AdvReac Type Severity Reaction Status Date / Time bee venom protein (honey bee) Allergy Severe Anaphylaxis Verified 07/29/18 23:16 prednisone Allergy Severe Blister Verified 07/29/18 23:16 Home Medications Medication Instructions Recorded Confirmed Type Probiotic 07/29/18 History celecoxib 07/29/18 History krill oil 07/29/18 History milk thistle 07/29/18 History Exam Vital signs: Vital Signs 08/01/18 20:15 09/08/18 00:00 08/02/18 04:00 Temperature 97.8 F 97.6 F Pulse Rate 79 79 78 Respiratory Rate 20 20 Blood Pressure 131/67 110/53 L Pulse Oximetry 100 99 08/02/18 08:00 08/02/18 12:00 08/02/18 16:00 Temperature 96.4 F L 96.4 F L 96.2 F L Pulse Rate 83 81 86 Respiratory Rate 17 16 16 Blood Pressure 111/51 L 108/51 L 114/56 L Pulse Oximetry 98 100 100 Intake & Output 08/02/18 08/02/18 08/03/18 06:59 18:59 06:59 Intake Total 2500 / 2500 1580 / 1580 Balance 2500 / 2500 1580 / 1580 Weight 101.9 kg Intake: IV 1100 / 1100 620 / 620 NS Inj 1,000 ML @ 150 mls/hr IV 1000 / 1000 .CONT .Q6H40M [facility] Rx#: [id number] Zosyn 3.375 GM Premix 50 ML @ 100 / 100 100 / 100 100 mls/hr IV.SIG Q6H [facility] Rx#: [id number] Vancomycin Inj 1,800 MG In NS 520 / 520 Inj 500 ML @ 250 mls/hr IV.SIG Q24H [facility] Rx#:[id number] Oral 1400 / 1400 960 / 960 Other: # Voids 3 5 Date of Last Bowel Movement 08/01/18 08/02/18 # Bowel Movements 1 2 - Constitutional mild distress, obese - Routine HEENT Exam Head: Present: normocephalic, atraumatic Eye: Present: EOMI, PERRL ENT: Present: mucous membranes dry Comments: few oral lesions present - Routine Neck Exam Present: supple, full ROM - Routine Respiratory Exam Present: decreased breath sounds, CTA bilaterally - Routine Cardiovascular Exam Present: RRR, S1, S2 Comments: no murmurs, rubs, gallops - Routine Abdominal Exam Present: soft, normoactive bowel sounds, tenderness (to skin) Comments: no organomegaly no masses - Routine Extremities Exam Present: edema (BLE ) Comments: marked deformities of small joints of b/l feet and hands - Routine Skin Exam Present: erythema (diffuse), rash (diffuse erythematous rash with desquamtion invoving alost entire body with some sparing of face) - Routine Neurological Exam Present: alert, oriented X3, CN II-XII intact, moving all extremities, normal speech - Routine Psychiatric Exam Present: normal affect, normal thought process, cooperative Results - Labs CBC & Chem 7: 08/02/18 06:20 08/01/18 09:57 Labs: Laboratory Results - last 24 hr 08/02/18 08/02/18 06:20 06:20 CBC w Diff Auto diff final WBC 12.3 H RBC 4.23 Hgb 11.6 Hct 33.9 L MCV 80.1 MCH 27.6 MCHC 34.4 RDW 17.6 H Plt Count 268 MPV 8.6 Neut % (Auto) 81.3 H Lymph % (Auto) 11.7 [place] % (Auto) 0.9 Eos % (Auto) 5.6 H Baso % (Auto) 0.5 Neut # (Auto) 10.0 H Lymph # (Auto) 1.4 [place] # (Auto) 0.1 Eos # (Auto) 0.7 H Baso # (Auto) 0.1 WBC Differential . Differential Comment . Vancomycin Trough 9.2 - Imaging Chest X-Ray 07/30/18 00:00 CONCLUSION: No acute cardiopulmonary disease. Assessment and Plan - Plan Severe flare up of psoriasis involving 80% of skin Low grade viridans stre p bacteremia - likley form the skin wounds Leukocytosis - improving dc zosyn dc vancomycin chk HIV DUANE unless was done recently start Rocephin
[2018-08-03] MEDS ORDERED: Vancomycin Inj 1,800 MG in Sodium Chlor 0.9% Inj 500 ML IV.SIG SCH ×2
[2018-08-03] MEDS: Folic Acid 1 MG Tablet PO SCH ×2 (07:42→08:03)
[2018-08-03] MEDS: Heparin - SQ 10,000 UNITS/ML Vial SQ SCH ×3 (07:43→21:25)
--- NOTE | 2018-08-03 07:56 | P.PN ---
Subjective Interval history: 48-year-old female who is seen and examined today for follow-up on psoriatic arthritis exacerbation, bacteremia. Patient continues to improve on a daily basis. Patient states that she is still in pain. Vital signs are stable, patient remains afebrile. Physical Exam Vital signs: Vital Signs 08/02/18 08:00 08/02/18 12:00 08/02/18 16:00 Temperature 96.4 F L 96.4 F L 96.2 F L Pulse Rate 83 81 86 Respiratory Rate 17 16 16 Blood Pressure 111/51 L 108/51 L 114/56 L Pulse Oximetry 98 100 100 08/02/18 20:00 08/03/18 00:00 Temperature 97 F L 96.6 F L Pulse Rate 92 H 86 Respiratory Rate 20 20 Blood Pressure 118/54 L 104/48 L Pulse Oximetry 99 97 Intake & Output 08/02/18 08/03/18 08/03/18 18:59 06:59 18:59 Intake Total 1580 / 1580 1530 / 1530 100 / 100 Balance 1580 / 1580 1530 / 1530 100 / 100 Weight 101.9 kg Intake: IV 620 / 620 1050 / 1050 100 / 100 Zosyn 3.375 GM Premix 50 ML @ 100 / 100 50 / 50 100 mls/hr IV.SIG Q6H [facility] Rx#: [id number] Vancomycin Inj 1,800 MG In NS 520 / 520 1000 / 1000 Inj 500 ML @ 250 mls/hr IV.SIG Q18H [facility] Rx#:[id number] Rocephin Inj 2,000 MG In NS Inj 100 / 100 100 ML @ 200 mls/hr IV.SIG Q24H [facility] Rx#:[id number] Oral 960 / 960 480 / 480 Other: # Voids 5 4 Date of Last Bowel Movement 08/02/18 # Bowel Movements 2 Narrative: GENERAL: Well-developed, well-nourished, in no acute distress. alert and orientated HEENT: Head is normocephalic without any lesions or masses noted. Facial features are symmetric. Eyes: Extraocular muscles are intact. Conjunctivae were clear. NECK: Supple without any masses. Trachea midline no deviation. No JVD, CARDIAC: Regular rhythm, regular rate. S1/S2 are heard. No murmurs gallops or rubs. LUNGS: Clear to auscultation bilaterally. No wheeze, rhonchi or rales. No use of accessory muscles on inspiration or expiration. ABDOMEN: Soft, nontender. Nondistended. Bowel sounds heard in all 4 quadrants. No organomegaly or masses. Negative rebound, negative guarding EXTREMITIES: No edema, pulses are equal bilaterally. No cyanosis or clubbing. Patient with obvious deformities of the hands and feet NEUROLOGY: Mood and affect appear appropriate. Cranial nerves II through XII grossly intact. Moving all extremities, speech is clear SKIN: Patient significantly improving. Significant erythema has improved and only a dusky erythematous color at this time. No longer presenting with bright red lesions. Lesions are drying out significantly. Patient has scaly skin that is sloughing off. Results - Labs CBC & Chem 7: 08/02/18 06:20 08/01/18 09:57 Laboratory Results - last 24 hr 08/02/18 06:20 Vancomycin Trough 9.2 Microbiology 08/01/18 09:57 Blood - Peripheral Aerobic Blood Culture - Preliminary No growth in 1 day 08/01/18 09:57 Blood - Peripheral Anaerobic Blood Culture - Preliminary No growth in 1 day 07/29/18 22:45 Blood - Peripheral Aerobic Blood Culture - Final Viridans streptococcus grp 07/29/18 22:45 Blood - Peripheral Anaerobic Blood Culture - Preliminary No growth in 4 days 07/29/18 22:40 Blood - Peripheral Aerobic Blood Culture - Preliminary No growth in 4 days 07/29/18 22:40 Blood - Peripheral Anaerobic Blood Culture - Preliminary No growth in 4 days Assessment and Plan - Assessment (1) Systemic inflammatory response syndrome Code(s): R65.10 - Systemic inflammatory response syndrome (SIRS) of non- infectious origin without acute organ dysfunction Status: Acute (2) Lactic acidosis Code(s): E87.2 - Acidosis Status: Acute (3) Leukocytosis Code(s): D72.829 - Elevated white blood cell count, unspecified Status: Acute (4) Psoriatic arthritis Code(s): L40.50 - Arthropathic psoriasis, unspecified Status: Acute - Plan Sepsis, resolved -Patient meets criteria with leukocytosis, lactic acidosis, psoriatic arthritis , urinary tract infection -Chest x-ray did not indicate any acute abnormality. -Blood cultures have become +1/4 with Licea and strep -Vancomycin and Zosyn discontinued per infectious disease patient started on Rocephin -Urinalysis does indicate urinary tract infection, urine culture shows no growth for 48 hours -Infectious disease recommending HIV testing, patient has deferred testing -Urine culture was negative for 48 hours Bacteremia -11/28+ blood cultures with viridans strep -Continue to follow culture reports -Echocardiogram requested, awaiting results -Infectious disease was consulted and made recommendations Psoriatic arthritis exacerbation -Continue pain control -Continue methotrexate 10 mg p.o. weekly -Continue folic acid 1 mg daily Azotemia, resolved -Unknown whether chronic versus acute -Continue IV fluid -Monitor renal function DVT prevention -Subcutaneous heparin Discharge Planning: Discharge planning if echocardiogram is negative for any abnormality, P blood cultures negative for 2 days and with antibiotics recommended by infectious disease.
[2018-08-03] MEDS: Senna/Docusate Sodium 8.6/50 MG Tablet PO SCH ×2 (08:03→21:22)
[2018-08-03] MEDS: Lactic Acid (Ammonium Lactate) 12% Lotion 225 GM Bottle TOPICAL SCH ×2 (10:16→21:31)
--- NOTE | 2018-08-03 16:08 | ECHRPT ---
Indication: Endocarditis CONCLUSIONS The left ventricular systolic function is normal with an EF of 50-55% Wall thickness and LV size is normal. No significant valvular heart disease. No evidence of vegetations. BP: / HR: Rhythm: Sinus Technical Quality:Technically difficult study FINDINGS LEFT VENTRICLE The left ventricular systolic function is low normal with an estimated ejection fraction in the rang e of 50- 55%. Wall thickness is normal. Normal left ventricular size. RIGHT VENTRICLE Normal right ventricular size and systolic function. LEFT ATRIUM The left atrial size is normal. RIGHT ATRIUM The right atrial size is normal. ATRIAL SEPTUM Normal atrial septal thickness without atrial level shunting by limited color doppler interrogation. AORTA The aortic root and proximal ascending aorta are normal in size on limited imaging. MITRAL VALVE Structurally normal mitral valve. No mitral valve stenosis or regurgitation. AORTIC VALVE Trileaflet aortic valve. No aortic valve stenosis or regurgitation. TRICUSPID VALVE Structurally normal tricuspid valve. No tricuspid valve stenosis or regurgitation. PULMONARY VALVE No pulmonary valve regurgitation or stenosis. VESSELS The inferior vena cava is normal in size. PERICARDIUM No pericardial effusion. Peng Hernandez MD (Electronically Signed) Final Date:03 August 2018 16:07
[2018-08-04] MEDS: Lactic Acid (Ammonium Lactate) 12% Lotion 225 GM Bottle TOPICAL SCH (09:53)
--- NOTE | 2018-08-04 09:59 | P.PN ---
Subjective Interval history: Patient seen and examined today for follow-up on psoriatic arthritis exacerbation. Patient is doing much better. Cellulitis is significantly improved. Patient does indicate that her left arm is more edematous than yesterday. Vital signs are stable. Patient remains afebrile. Physical Exam Vital signs: Vital Signs 08/03/18 12:00 08/03/18 16:00 08/03/18 20:00 Temperature 97.6 F 96.0 F L 98.5 F Pulse Rate 84 86 85 Respiratory Rate 16 16 20 Blood Pressure 109/50 L 123/55 L 95/50 L Pulse Oximetry 98 98 99 08/04/18 00:00 Temperature 96.8 F L Pulse Rate 94 H Respiratory Rate 20 Blood Pressure 101/51 L Pulse Oximetry 98 Intake & Output 08/03/18 08/04/18 08/04/18 18:59 06:59 18:59 Intake Total 1060 / 1060 1200 / 1200 Balance 1060 / 1060 1200 / 1200 Intake: IV 100 / 100 Rocephin Inj 2,000 MG In NS Inj 100 / 100 100 ML @ 200 mls/hr IV.SIG Q24H [facility] Rx#:[id number] Oral 960 / 960 1200 / 1200 Other: # Voids 6 3 Date of Last Bowel Movement 08/03/18 # Bowel Movements 2 Narrative: GENERAL: Well-developed, well-nourished, in no acute distress. alert and orientated HEENT: Head is normocephalic without any lesions or masses noted. Facial features are symmetric. Eyes: Extraocular muscles are intact. Conjunctivae were clear. NECK: Supple without any masses. Trachea midline no deviation. No JVD, CARDIAC: Regular rhythm, regular rate. S1/S2 are heard. No murmurs gallops or rubs. LUNGS: Clear to auscultation bilaterally. No wheeze, rhonchi or rales. No use of accessory muscles on inspiration or expiration. ABDOMEN: Soft, nontender. Nondistended. Bowel sounds heard in all 4 quadrants. No organomegaly or masses. Negative rebound, negative guarding EXTREMITIES: No edema, pulses are equal bilaterally. No cyanosis or clubbing. Patient with obvious deformities of the hands and feet NEUROLOGY: Mood and affect appear appropriate. Cranial nerves II through XII grossly intact. Moving all extremities, speech is clear SKIN: Patient significantly improving. Significant erythema has improved and only slight pink color of healing. No longer presenting with bright red lesions. Lesions are drying out significantly. Patient has scaly skin that is sloughing off. Results - Labs CBC & Chem 7: 08/02/18 06:20 08/01/18 09:57 Microbiology 08/01/18 09:57 Blood - Peripheral Aerobic Blood Culture - Preliminary No growth in 2 days 08/01/18 09:57 Blood - Peripheral Anaerobic Blood Culture - Preliminary No growth in 2 days 07/29/18 22:45 Blood - Peripheral Aerobic Blood Culture - Final Viridans streptococcus grp 07/29/18 22:45 Blood - Peripheral Anaerobic Blood Culture - Final No growth in 5 days 07/29/18 22:40 Blood - Peripheral Aerobic Blood Culture - Final No growth in 5 days 07/29/18 22:40 Blood - Peripheral Anaerobic Blood Culture - Final No growth in 5 days - Procedures ECHOCARDIOGRAM CONCLUSIONS The left ventricular systolic function is normal with an EF of 50-55% Wall thickness and LV size is normal. No significant valvular heart disease. No evidence of vegetations. Assessment and Plan - Assessment (1) Systemic inflammatory response syndrome Code(s): R65.10 - Systemic inflammatory response syndrome (SIRS) of non- infectious origin without acute organ dysfunction Status: Acute (2) Lactic acidosis Code(s): E87.2 - Acidosis Status: Acute (3) Leukocytosis Code(s): D72.829 - Elevated white blood cell count, unspecified Status: Acute (4) Psoriatic arthritis Code(s): L40.50 - Arthropathic psoriasis, unspecified Status: Acute - Plan Sepsis, resolved -Patient meets criteria with leukocytosis, lactic acidosis, psoriatic arthritis , urinary tract infection -Chest x-ray did not indicate any acute abnormality. -Blood cultures have become +1/4 with Licea and strep -Vancomycin and Zosyn discontinued per infectious disease patient started on Rocephin -Urinalysis does indicate urinary tract infection, urine culture shows no growth for 48 hours -Infectious disease recommending HIV testing, patient has deferred testing -Urine culture was negative for 48 hours Bacteremia -1/4+ blood cultures with viridans strep -Continue to follow culture reports -Echocardiogram was normal without any signs of endocarditis -Infectious disease was consulted and made recommendations Psoriatic arthritis exacerbation, improved -Continue pain control -Continue methotrexate 10 mg p.o. weekly -Continue folic acid 1 mg daily -Physical therapy evaluated the patient indicates that she is functioning well. Walking with and without walker. Able to stand on her own without help. Does have someone who lives with her that helps her on a regular basis. Left upper extremity edema -Obtain venous Doppler to rule out any DVT Azotemia, resolved -Unknown whether chronic versus acute -Continue IV fluid -Monitor renal function DVT prevention -Subcutaneous heparin
[2018-08-04] MEDS: Heparin - SQ 10,000 UNITS/ML Vial SQ SCH (10:32)
[2018-08-04] MEDS: Senna/Docusate Sodium 8.6/50 MG Tablet PO SCH (10:32)
[2018-08-04] MEDS: Folic Acid 1 MG Tablet PO SCH (10:32)
--- NOTE | 2018-08-04 10:53 | P.PNADD ---
Addendum to Inpatient Note Additional information: jhony Dhaliwal Pt refused HIV testing PICC is a high risk in this pt with nearly 90% of skin involved in psorisis flare up Vir strep bacteremia is probably is secondary from an infected skin lesion and appears to be transient Therefore will try clindamycin 300mg qid PO to complete 7 more days of treatment Pt will need to be switched to IV abx (ROcephin) with PICC if more + cultures with same organism and/or more fever OK to dc from ID perspective
--- NOTE | 2018-08-04 11:22 | P.PNID ---
Subjective Remarks: co loose stool x 1 , no N/V or abd pain no fever repeat BC neg @ 2days skin improving Antibiotics: CFTX Allergies/Adverse Reactions: Allergies bee venom protein (honey bee) Allergy (Severe, Verified 07/29/18 23:16) Anaphylaxis prednisone Allergy (Severe, Verified 07/29/18 23:16) Blister Objective Vital Signs 08/03/18 12:00 08/03/18 16:00 08/03/18 20:00 Temperature 97.6 F 96.0 F L 98.5 F Pulse Rate 84 86 85 Respiratory Rate 16 16 20 Blood Pressure 109/50 L 123/55 L 95/50 L Pulse Oximetry 98 98 99 08/04/18 00:00 08/04/18 08:00 Temperature 96.8 F L 97.8 F Pulse Rate 94 H 84 Respiratory Rate 20 21 Blood Pressure 101/51 L Pulse Oximetry 98 Intake & Output 08/03/18 08/04/18 08/04/18 18:59 06:59 18:59 Intake Total 1060 / 1060 1200 / 1200 240 / 240 Balance 1060 / 1060 1200 / 1200 240 / 240 Intake: IV 100 / 100 Rocephin Inj 2,000 MG In NS Inj 100 / 100 100 ML @ 200 mls/hr IV.SIG Q24H [facility] Rx#:[id number] Oral 960 / 960 1200 / 1200 240 / 240 Other: # Voids 6 3 Date of Last Bowel Movement 08/03/18 # Bowel Movements 2 08/01/18 09:57 Blood - Peripheral Aerobic Blood Culture - Preliminary No growth in 3 days 08/01/18 09:57 Blood - Peripheral Anaerobic Blood Culture - Preliminary No growth in 3 days 07/29/18 22:45 Blood - Peripheral Aerobic Blood Culture - Final Viridans streptococcus grp 07/29/18 22:45 Blood - Peripheral Anaerobic Blood Culture - Final No growth in 5 days 07/29/18 22:40 Blood - Peripheral Aerobic Blood Culture - Final No growth in 5 days 07/29/18 22:40 Blood - Peripheral Anaerobic Blood Culture - Final No growth in 5 days 07/30/18 18:00 Clean Catch Urine Urine Culture - Final No growth in 48 hours Imaging: ITS Impressions Chest X-Ray 07/30/18 00:00 CONCLUSION: No acute cardiopulmonary disease. Physical Exam: GENERAL: SKIN: Rash improved, much less erythema and nearly completely resolved edema a lot f peeling no new lesions EYES: No scleral icterus. No injection or drainage. mucosae moist RESPIRATORY: Breathing umlaboured. No accessory muscle use. GASTROINTESTINAL: Abdomen soft, non-tender, nondistended. MUSCULOSKELETAL: No cyanosis, or edema. CAMI: awake alert no focal Assessment and Plan - Plan Severe flare up of psoriasis involving 80% of skin Low grade viridans stre p bacteremia - likley trasient form the skin wounds Leukocytosis - improving dw Finn Dhaliwal Pt refused HIV testing PICC is a high risk in this pt with nearly 90% of skin involved in psorisis flare up Vir strep bacteremia is probably is secondary from an infected skin lesion and appears to be transient Therefore will try clindamycin 300mg qid PO to complete 7 more days of treatment Pt will need to be switched to IV abx (ROcephin) with PICC if more + cultures with same organism and/or more fever OK to dc from ID perspective Pt was conselled regading clindamycin side effects including C.diff ; istructed to report diarrea, abd pain /cramps, distension chk stool for c.diff if pt have another loose/liquid stool
[2018-08-04] MEDS ORDERED: Pharmacy Ordered Lab Info OTHER SCH (11:45)
--- NOTE | 2018-08-04 14:44 | US ---
EXAM DATE: 08/04/2018 2:21 PM EDT AGE/SEX: 48 years / Female INDICATIONS: Left arm swelling. CLINICAL DATA: This is the patient's initial encounter. Patient reports that signs and symptoms have been present for 1 day and indicates a pain score of 0/10. MEDICAL/SURGICAL HISTORY: . Psoriasis. Psoriatic arthritis. Tonsillectomy. Eye surgery. COMPARISON: No prior exams available for comparison. FINDINGS: The vessels are compressible and augmentation response is documented. No filling defects a re seen. The flow is phasic with respiration. Other: None. CONCLUSION: The study is negative for upper extremity deep venous thrombosis. Electronically signed by: Gus Castillo MD 08/04/2018 2:42 PM EDT
--- NOTE | 2018-08-04 15:00 | P.DS ---
Date of admission: 07/30/18 11:01 Primary care physician: Krissy Gallardo Attending physician on discharge: Adi Mendez Anticipated date of discharge: 08/04/18 Brief History from admission: 48-year-old female with known history of rather significant psoriatic arthritis. Patient does not have a demand manager that she follows with. She states that her primary medical doctor usually treats her with anti- inflammatory to include Celebrex. Patient states that she is just coming off of a recent exacerbation and then Saturday she started developing a worsening rash which progressively got worse to where it is almost covering her whole entire body. States that she has had significant amount of pain and difficulty with moving. She has been taking Celebrex without any improvement. Patient denies any chest pain, shortness of breath, dyspnea, fever, chills, cough, congestion. She did have one episode of nausea and vomiting. This patient's symptoms did not improve with the use of Celebrex she came to the emergency department for evaluation. Patient workup which shown significant signs of inflammatory response with leukocytosis, elevated C-reactive protein, lactic acid elevation. Patient was admitted for further evaluation and management. DS: Diagnosis - Discharge Diagnosis (1) Systemic inflammatory response syndrome Status: Acute (2) Lactic acidosis Status: Acute (3) Leukocytosis Status: Acute (4) Psoriatic arthritis Status: Acute (5) Viridans streptococci infection Status: Acute (6) Bacteremia Status: Acute DS: Medications - Discharge Medications Prescriptions: clindamycin HCl 300 mg PO QID #28 cap folic acid 1 mg PO DAILY 30 Days #30 tab hydrocodone-acetaminophen 1 tab PO Q6H PRN #12 tab PRN Reason: Acute Pain methotrexate sodium 10 mg PO Q7D #16 tab DS: Summary Hospital Course: 48-year-old female who originally presented the hospital because of psoriatic arthritis exacerbation. Patient does have a long history of psoriatic arthritis and does not have an outpatient prior medical doctor and/or demand manager. She came to emergency department for evaluation due to significant edema, inflammation of the skin. She was undergoing treatment outpatient for previous episode approximately 3 weeks ago which she had started to heal up well. However patient had worsening of her condition so she came to the hospital. Patient was found to have sepsis syndrome and was subsequently admitted the hospital with empiric antibiotics include vancomycin, Zosyn. Patient was pancultured and continued on IV fluids. Patient was given methotrexate 10 mg p.o. for her psoriatic arthritis. Patient responded that rather significantly and started improving on a daily basis. On presentation patient had very wet macerated lesions covering almost her entire body. After the first 24-48 hours of methotrexate all the lesions have dried up and started having the peeling skin without any signs of infection. Patient was tolerating treatment well. Leukocytosis continued to improve, lactic acid continued to improve. Patient blood cultures did come up with a low-grade bacteremia with viridans strep, infectious disease was consulted who recommended changing to Rocephin IV. Patient continued to tolerate treatment well. Follow-up cultures remain negative for 3 days. Cultures did come back. Infectious disease recommended 7 days of clindamycin 300 mg 4 times daily. Infectious disease indicate patient is stable for discharge. Patient did respond quite well to treatment and is clinically stable at this time. mobile manager was consulted to arrange for patient care assistance, blue card and outpatient appointment with [facility]. We will discharge patient accordingly. - Time Spent with Patient Total time spent providing and/or coordinating discharge services: Greater than 30 minutes - Quality: VTE Deep Vein Thrombosis/Pulmonary Embolism Present on Admission: No Exam Vital signs: Vital Signs 08/03/18 16:00 08/03/18 20:00 08/04/18 00:00 Temperature 96.0 F L 98.5 F 96.8 F L Pulse Rate 86 85 94 H Respiratory Rate 16 20 20 Blood Pressure 123/55 L 95/50 L 101/51 L Pulse Oximetry 98 99 98 08/04/18 08:00 08/04/18 12:00 Temperature 97.8 F 97.2 F L Pulse Rate 84 76 Respiratory Rate 21 19 Blood Pressure 108/53 L Pulse Oximetry 98 Intake & Output 08/03/18 08/04/18 08/04/18 18:59 06:59 18:59 Intake Total 1060 / 1060 1200 / 1200 240 / 240 Balance 1060 / 1060 1200 / 1200 240 / 240 Intake: IV 100 / 100 Rocephin Inj 2,000 MG In NS Inj 100 / 100 100 ML @ 200 mls/hr IV.SIG Q24H DERECK Rx#:[id number] Oral 960 / 960 1200 / 1200 240 / 240 Other: # Voids 6 3 Date of Last Bowel Movement 08/03/18 # Bowel Movements 2 Narrative: GENERAL: Well-developed, well-nourished, in no acute distress. alert and orientated HEENT: Head is normocephalic without any lesions or masses noted. Facial features are symmetric. Eyes: Extraocular muscles are intact. Conjunctivae were clear. NECK: Supple without any masses. Trachea midline no deviation. No JVD, CARDIAC: Regular rhythm, regular rate. S1/S2 are heard. No murmurs gallops or rubs. LUNGS: Clear to auscultation bilaterally. No wheeze, rhonchi or rales. No use of accessory muscles on inspiration or expiration. ABDOMEN: Soft, nontender. Nondistended. Bowel sounds heard in all 4 quadrants. No organomegaly or masses. Negative rebound, negative guarding EXTREMITIES: No edema, pulses are equal bilaterally. No cyanosis or clubbing. Patient with obvious deformities of the hands and feet NEUROLOGY: Mood and affect appear appropriate. Cranial nerves II through XII grossly intact. Moving all extremities, speech is clear SKIN: Patient significantly improving. Significant erythema has improved and only slight pink color of healing. No longer presenting with bright red lesions. Lesions are drying out significantly. Patient has scaly skin that is sloughing off. Results Procedures completed during hospitalization: ECHOCARDIOGRAM CONCLUSIONS The left ventricular systolic function is normal with an EF of 50-55% Wall thickness and LV size is normal. No significant valvular heart disease. No evidence of vegetations. Labs on day of discharge: Preliminary micro results at discharge 08/01/18 09:57 Aerobic Blood Culture - Preliminary Blood - Peripheral No growth in 3 days Anaerobic Blood Culture - Preliminary No growth in 3 days - Impressions ITS Impressions Chest X-Ray 07/30/18 00:00 CONCLUSION: No acute cardiopulmonary disease. Venous Doppler Study 08/04/18 00:00 CONCLUSION: The study is negative for upper extremity deep venous thrombosis. Discharge Plan - Discharge Disposition Patient Disposition: 01 Discharge Home - Discharge Condition Condition: Stable - Discharge Order Discharge Orders: Discharge Order (Routine); Ordered 08/04/18 Ordered By: Esvin Dhaliwal - Discharge Details Anticipated Discharge Date: 08/04/18 - Physicians Team Primary Care Provider: Krissy Gallardo Attending Provider: Adi Mendez Other Providers: Brenda Baca MD
== END 2018-08-04 16:45 | disposition home or self-care (01) ==
LOC: PHEDA 19:37 → PHED 19:37 → PH3 07-30 00:20
PROVIDERS: ADMIT Hospitalist; ATTEND Hospitalist

== ENCOUNTER 2018-08-19 15:27 | Inpatient (IN) ==
--- NOTE | 2018-08-19 17:30 | XR ---
EXAM DATE: 08/19/2018 4:41 PM EDT AGE/SEX: 48 years / Female INDICATIONS: Cough. CLINICAL DATA: This is the patient's initial encounter. Patient reports that signs and symptoms have been present for 1 day and indicates a pain score of 0/10. MEDICAL/SURGICAL HISTORY: . psoriatic arthritis. None. COMPARISON: No prior exams available for comparison. FINDINGS: A single AP view of the chest demonstrates the lungs to be symmetrically aerated without evidence of mass, infiltrate or effusion. The cardiomediastinal contours are unremarkable. Osseous structures a re intact. CONCLUSION: No evidence of acute cardiopulmonary process. Electronically signed by: Gus Castillo MD 08/19/2018 5:28 PM EDT
--- NOTE | 2018-08-19 17:31 | ED ---
HPI General Chief complaint: Skin/Abscess/Foreign Body Stated complaint: arthritis flare up Time Seen by Provider: 08/19/18 16:19 Source: patient Mode of arrival: ambulatory Limitations: no limitations History of Present Illness HPI narrative: 48-year-old female with history of psoriatic arthritis presents to the emergency department complaining of a rash that has been persistent for several weeks. Patient states she presented to the [place] ED earlier this month and was discharged with Clindamycin. States she did not complete the clindamycin antibiotic course because she went to [facility] who recommended she go to [facility]. 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 She was discharged 'without diagnosis' and told this was a arthritis 'flare up'. Patient states she was discharged 1 week ago. States she is here today because the inflammation and redness have increased. States she is also having pain. She also also complaining of some swelling of the left lower abdomen that is new. She denies fevers, nausea, vomiting, diarrhea, abdominal pain. She saw her primary care physician today who recommended she come to the emergency department for further evaluation. MD complaint: rash Location: generalized Severity: severe Quality: burning Pain Consistency: constant Relieving factors: none Exacerbating factors: none Context: none Associated symptoms: chills and itching Treatments prior to arrival: none Related Data Home Medications Medication Instructions Recorded Confirmed No Known Home Medications 08/19/18 08/19/18 Allergies Allergy/AdvReac Type Severity Reaction Status Date / Time bee venom protein (honey bee) Allergy Severe Anaphylaxis Verified 07/29/18 23:16 prednisone Allergy Severe Blister Verified 07/29/18 23:16 Review of Systems ROS: all other systems reviewed are negative [facility] Medical History Medical History Psoriasis (Acute) Psoriatic arthritis (Acute) Surgical History Surgical History History of eye surgery (Acute) History of tonsillectomy (Acute) Social History Social History Substance History: No History of Abuse Second Hand Smoke Exposure: No Smoking Status: Former smoker Tobacco Type: Cigarettes How Often Do You Have a Drink Containing Alcohol: Never Recent Travel in [facility] within the Last 8 Weeks: No Recent Out of Country Travel within the Last 8 Weeks: No Immunization History Tetanus Immunization: Unsure Exam Narrative Exam Narrative: GENERAL: Well-developed, well-nourished in no apparent distress SKIN: Scaling is diffuse from the scalp to the feet. Significant erythema to the upper extremities that is circumferential from the upper arms to the fingers. Contractures present of the fingers, chronic according to patient. Skin blanches with pressure. honey crusting in areas of scaling. abdominal wall- slight bulging of the left pannus with slight induration, surprisingly fewer lesions present in this area. Excoriations present mid abdominal region. Lower extremities numerous plaques with associated scaling. Skin is supple. HEAD: Atraumatic. Normocephalic. EYES: Pupils equal and round. No scleral icterus. No injection or drainage. ENT: No nasal bleeding or discharge. Mucous membranes pink and moist. NECK: Trachea midline. No JVD. CARDIOVASCULAR: Regular rate and rhythm. No murmur appreciated. RESPIRATORY: No accessory muscle use. Clear to auscultation. Breath sounds equal bilaterally. GASTROINTESTINAL: Abdomen soft, non-tender, nondistended. Hepatic and splenic margins not palpable. MUSCULOSKELETAL: No obvious deformities. No clubbing. No cyanosis. No edema. NEUROLOGICAL: Awake and alert. No obvious cranial nerve deficits. Motor grossly within normal limits. Normal speech. PSYCHIATRIC: Appropriate mood and affect; insight and judgment normal. Course Initial Documented Vital Signs Temperature 98.0 F 08/19/18 15:35 Pulse Rate 93 H 08/19/18 15:35 Respiratory Rate 18 08/19/18 15:35 Blood Pressure 121/56 L 08/19/18 15:35 Pulse Oximetry 100 08/19/18 15:35 Last Documented Vital Signs Temperature 97.9 F 08/19/18 21:16 Pulse Rate 91 H 08/19/18 21:16 Respiratory Rate 18 08/19/18 21:16 Blood Pressure 126/65 08/19/18 21:16 Pulse Oximetry 98 08/19/18 21:16 Medical Decision Making [facility] Narrative Medical decision making narrative: 48-year-old female with a history of psoriatic arthritis presents to the emergency department for evaluation of increased redness, and inflammation over the last couple days. Patient is evaluated here July 30, was admitted, and treated with clindamycin. The infectious disease specialist recommended she do a trial of clindamycin for 7 days. Patient does not complete this course of clindamycin and went to [facility] where she was transferred to [facility]. [facility] biopsied the skin to rule out Doll-Ady syndrome. 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 Vital signs are stable. EKG sinus rhythm rate 89, regular without STEMI changes. Labs are significant for lactic at 3.1, no leukocytosis, H/H 9.8/30.5, urinalysis likely contaminated Chest x-ray without acute process. I reviewed the previous blood culture results which grew viridans strep. Initiated Zosyn and vancomycin. Because of the extent of the skin involvement, edema, lactic acidosis, borderline tachycardia, will admit patient. As with the previous recommendation from Dr. Baca, infectious disease, consider PICC placement for IV abx. Will let inpatient team make further recommendations for treatment. Medical Screen Exam Complete: Yes Emergency Medical Condition: Yes Differential Diagnosis Differential Diagnosis: Psoriatic arthritis, cellulitis, sepsis, erysipelas Medical Records Medical records reviewed: Yes I reviewed the patient's medical records. Lab Data Result diagrams: 08/19/18 16:59 08/19/18 16:56 Lab Results 08/19/18 08/19/18 08/19/18 Range/Units 16:56 16:56 16:59 WBC 9.0 (4.0-11.0) th/mm3 RBC 3.75 L (4.00-5.30) mil/mm3 Hgb 9.8 L (11.6-15.3) gm/dL Hct 30.5 L (35.0-46.0) % MCV 81.4 (80.0-100.0) fL MCH 26.0 L (27.0-34.0) pg MCHC 32.0 (32.0-36.0) % RDW 17.4 H (11.6-17.2) % Plt Count 332 (150-450) th/mm3 MPV 7.9 (7.0-11.0) fL Neut % (Auto) 62.7 (16.0-70.0) % Lymph % (Auto) 15.0 (9.0-44.0) % [place] % (Auto) 12.4 H (0.0-8.0) % Eos % (Auto) 8.8 H (0.0-4.0) % Baso % (Auto) 1.1 (0.0-2.0) % Neut # (Auto) 5.6 (1.8-7.7) th/mm3 Lymph # (Auto) 1.3 (1.0-4.8) th/mm3 [place] # (Auto) 1.1 H (0.0-0.9) th/mm3 Eos # (Auto) 0.8 H (0.0-0.4) th/mm3 Baso # (Auto) 0.1 (0.0-0.2) th/mm3 WBC Differential . Differential Comment Auto diff final PT (9.8-11.6) sec INR Ratio APTT (24.3-30.1) sec Sodium 141 (136-145) meq/L Potassium 3.7 (3.5-5.1) meq/L Chloride 107 (98-107) meq/L Carbon Dioxide 25.2 (21.0-32.0) meq/L Anion Gap 9 (5-15) meq/L BUN 7 (7-18) mg/dL Creatinine 0.90 (0.50-1.00) mg/dL Estimated GFR 67 L (>89) mL/min Random Glucose 124 H (74-106) mg/dL Lactic Acid 3.1 H (0.4-2.0) mmol/L Calcium 7.5 L (8.5-10.1) mg/dL Total Bilirubin 0.3 (0.2-1.0) mg/dL AST 11 L (15-37) U/L ALT 12 (10-53) U/L Alkaline Phosphatase 72 (45-117) U/L Total Protein 5.7 L (6.4-8.2) g/dL Albumin 2.2 L (3.4-5.0) g/dL Urine Color (Yellw/Straw) Urine Clarity (Clear) Urine pH (5.0-8.5) Ur Specific Mcbrides (1.002-1.035) Urine Protein (Neg-Trace) mg/dL Urine Glucose (UA) (Negative) mg/dL Urine Ketones (Negative) mg/dL Urine Occult Blood (Negative) Urine Nitrate (Negative) Urine Bilirubin (Negative) Urine Urobilinogen (Less than 2) mg/dL Ur Leukocyte Esterase (Negative) Urine RBC (0-3) /hpf Urine WBC (0-5) /hpf Ur Squamous Epith Cells (0-5) /hpf Urine Bacteria (None) /hpf Urine Mucus (Occasional) /lpf Micro UA Comment Ur Microscopic Review Urine Culture Comments 08/19/18 08/19/18 08/19/18 Range/Units 16:59 17:40 20:26 WBC (4.0-11.0) th/mm3 RBC (4.00-5.30) mil/mm3 Hgb (11.6-15.3) gm/dL Hct (35.0-46.0) % MCV (80.0-100.0) fL MCH (27.0-34.0) pg MCHC (32.0-36.0) % RDW (11.6-17.2) % Plt Count (150-450) th/mm3 MPV (7.0-11.0) fL Neut % (Auto) (16.0-70.0) % Lymph % (Auto) (9.0-44.0) % [place] % (Auto) (0.0-8.0) % Eos % (Auto) (0.0-4.0) % Baso % (Auto) (0.0-2.0) % Neut # (Auto) (1.8-7.7) th/mm3 Lymph # (Auto) (1.0-4.8) th/mm3 [place] # (Auto) (0.0-0.9) th/mm3 Eos # (Auto) (0.0-0.4) th/mm3 Baso # (Auto) (0.0-0.2) th/mm3 WBC Differential Differential Comment PT 11.2 (9.8-11.6) sec INR 1.1 Ratio APTT 25.4 (24.3-30.1) sec Sodium (136-145) meq/L Potassium (3.5-5.1) meq/L Chloride (98-107) meq/L Carbon Dioxide (21.0-32.0) meq/L Anion Gap (5-15) meq/L BUN (7-18) mg/dL Creatinine (0.50-1.00) mg/dL Estimated GFR (>89) mL/min Random Glucose (74-106) mg/dL Lactic Acid 1.6 (0.4-2.0) mmol/L Calcium (8.5-10.1) mg/dL Total Bilirubin (0.2-1.0) mg/dL AST (15-37) U/L ALT (10-53) U/L Alkaline Phosphatase (45-117) U/L Total Protein (6.4-8.2) g/dL Albumin (3.4-5.0) g/dL Urine Color Yellow (Yellw/Straw) Urine Clarity Cloudy H (Clear) Urine pH 6.0 (5.0-8.5) Ur Specific Mcbrides 1.008 (1.002-1.035) Urine Protein Negative (Neg-Trace) mg/dL Urine Glucose (UA) Negative (Negative) mg/dL Urine Ketones Negative (Negative) mg/dL Urine Occult Blood Moderate H (Negative) Urine Nitrate Negative (Negative) Urine Bilirubin Negative (Negative) Urine Urobilinogen Less than 2 (Less than 2) mg/dL Ur Leukocyte Esterase Small H (Negative) Urine RBC 3 (0-3) /hpf Urine WBC 6 H (0-5) /hpf Ur Squamous Epith Cells 14 (0-5) /hpf Urine Bacteria Rare H (None) /hpf Urine Mucus Few H (Occasional) /lpf Micro UA Comment Culture not ind Ur Microscopic Review Not Reportable Urine Culture Comments Culture not ind Imaging Data Radiologist's impression: Chest X-Ray 08/19/18 16:41 CONCLUSION: No evidence of acute cardiopulmonary process. Discharge Plan Discharge Disposition Patient Disposition: 30 Still Patient Discharge Condition Condition: Stable Discharge Details Diagnosis: Acidosis, lactic, Cellulitis Physicians Team ED Provider: Shoaib Torrez ED Midlevel Provider: Amanda Rodriguez Primary Care Provider: Krissy Gallardo Attending Provider: Shannon Combs Other Providers: Brenda Baca Status ED Status: Left Department Discharge Information Discharge Date/Time: 08/19/18 21:20
[2018-08-19 17:41] LABS: Activated Partial Thrombo Time 25.4 sec (24.3-30.1); Baso # (Auto) 0.1 th/mm3 (0.0-0.2); Baso % (Auto) 1.1 % (0.0-2.0); Eos # (Auto) 0.8 th/mm3 (0.0-0.4); Eos % (Auto) 8.8 % (0.0-4.0); Hematocrit 30.5 % (35.0-46.0); Hemoglobin 9.8 gm/dL (11.6-15.3); INR 1.1 Ratio; Lymph # (Auto) 1.3 th/mm3 (1.0-4.8); Mean Corpuscular Volume 81.4 fL (80.0-100.0); Mean Platelet Volume 7.9 fL (7.0-11.0); Mono # (Auto) 1.1 th/mm3 (0.0-0.9); Mono % (Auto) 12.4 % (0.0-8.0); Neut # (Auto) 5.6 th/mm3 (1.8-7.7); Neut % (Auto) 62.7 % (16.0-70.0); Platelet Count 332 th/mm3 (150-450); Prothrombin Time 11.2 sec (9.8-11.6); Red Blood Count 3.75 mil/mm3 (4.00-5.30); Red Cell Distribution Width 17.4 % (11.6-17.2)
[2018-08-19 17:46] LABS: Albumin 2.2 g/dL (3.4-5.0); Anion Gap 9 meq/L (5-15); Aspartate Aminotransferase 11 U/L (15-37); Blood Urea Nitrogen 7 mg/dL (7-18); Calcium 7.5 mg/dL (8.5-10.1); Carbon Dioxide 25.2 meq/L (21.0-32.0); Chloride 107 meq/L (98-107); Glomerular Filtration Rate 67 mL/min (>89); Glucose,Random 124 mg/dL (74-106); Potassium 3.7 meq/L (3.5-5.1); Sodium 141 meq/L (136-145)
[2018-08-19 17:49] LABS: Alanine Aminotransferase 12 U/L (10-53); Alkaline Phosphatase 72 U/L (45-117); Total Protein 5.7 g/dL (6.4-8.2)
[2018-08-19 18:04] LABS: Bacteria,Urine Rare /hpf; Bilirubin,Urine Negative (Negative); Clarity,Urine Cloudy (Clear); Color,Urine Yellow (Yellw/Straw); Glucose,Urine (UA) Negative (Negative); Leukocyte Esterase,Urine Small (Negative); Mucus,Urine Few /lpf (Occasional); Nitrite,Urine Negative (Negative); Specific Gravity,Urine 1.008 (1.002-1.035); Squamous Epithelial Cell,Urine 14 /hpf (0-5)
[2018-08-19] MEDS ORDERED: Piperacil/Tazo 3.375 GM Premix 50 ML IV.SIG ONE (18:21)
[2018-08-19] MEDS ORDERED: Vancomycin Inj 1,750 MG in Sodium Chlor 0.9% Inj 500 ML IV.SIG ONE (18:21)
[2018-08-19] MEDS ORDERED: Vancomycin Consult Pharmacy OTHER PRN (20:24)
--- NOTE | 2018-08-19 22:28 | ECG ---
Date Performed: 08/19/2018 Time Performed: 17:56:01 PTAGE: 48 years EKG: Sinus rhythm POSSIBLE LEFT ATRIAL ENLARGEMENT BORDERLINE ECG NO PREVIOUS TRACING DOCTOR: Domenico Cruz Interpretating Date/Time 08/19/2018 22:27:49
[2018-08-19] MEDS ORDERED: Sodium Chloride 0.9% 2 ML Flush PRN IV.FLUSH (22:40)
[2018-08-19] MEDS: Morphine Inj 4 MG/ML Vial IV.PUSH PRN (23:00)
[2018-08-20] MEDS: Piperacil/Tazo 3.375 GM Premix 50 ML IV.SIG SCH ×4 (00:28→17:33)
--- NOTE | 2018-08-20 04:32 | P.HPIM ---
History of Present Illness Primary Care Physician: Krissy Gallardo History of Present Illness: 48-year-old female with a history of psoriatic arthritis who presents with a one -month history of progressively worsening whole body erythematous scaly rash, associated constant burning pain, predominantly in bilateral legs which are particularly affected. Patient initially presented to [place] at the beginning of this month, was found to have strep viridans bacteremia, and discharged home on clindamycin which she did not continue. Patient went to [facility] who then sent her to [facility] where she had a biopsy that was reportedly negative for José Miguel Ady's, and she was told to follow-up with primary care. She saw a primary care today who told her to present to the hospital. Patient reports occasional chills, generalized fatigue. Denies any chest pain or shortness of breath. Denies diarrhea, nausea, vomiting. Inpatient Certification: I certify that the inpatient services were ordered in accordance with Medicare regulations governing the order. This includes certification that hospital inpatient services are reasonable and necessary and in the case of services not specified as inpatient-only under 42 CFR 419.22(n), that they are appropriately provided as inpatient services in accordance to with the 2-midnight benchmark under 43 CFR 412.3(e) Estimated Total Length of Stay (Days): 2 Plans for Post Hospital Care: Not yet determined Review of Systems All other systems reviewed negative except as stated in HPI [facility] - History History Provided By: Patient - Medical History Medical History: Medical History (Last Reviewed 08/19/18 @ 17:24 by AMANDA Rose) Psoriasis Psoriatic arthritis - Surgical History Surgical History: Surgical History (Last Reviewed 08/19/18 @ 17:24 by AMANDA Rose) History of eye surgery History of tonsillectomy - Family History Family History: Family History (Last Reviewed 08/03/18 @ 01:52 by Brenda Baca MD) Brother Psoriasis - Tobacco History Second Hand Smoke Exposure: No Tobacco Use In Past 30 Days: Yes Smoking Status: Former smoker Tobacco Type: Cigarettes - Alcohol History How Often Do You Have a Drink Containing Alcohol: Never - Substance Use History Substance History: No History of Abuse - Travel History Recent Travel in the [place] Within the Last 8 Weeks: No Recent Travel Out of the Country Within the Last 8 Weeks: No - Immunization History Tetanus Immunization: Unsure Hx Influenza Vaccine This Season: No Medications and Allergies Active Medications: Active Medications Diphenhydramine HCl (Benadryl) 25 mg PO Q6H PRN PRN Reason: ITCHING Piperacillin/Tazobactam/Dextrose (Zosyn 3.375 Gm Premix) 50 mls @ 100 mls/hr IV.SIG Q6H [facility] Last Infusion: 08/20/18 00:58 Dose: Infused Vancomycin HCl 1,500 mg/ (Sodium Chloride) 515 mls @ 250 mls/hr IV.SIG Q12H [facility] Miscellaneous Information ([facility] Ordered Lab Info) 0 each OTHER ONCE ONE Stop: 08/21/18 08:46 Morphine Sulfate (Morphine Inj) 2 mg IV.PUSH Q3H PRN PRN Reason: pain 1 to 10 Last Admin: 08/19/18 23:00 Dose: 2 mg Multivitamins (Theragran) 1 tab PO DAILY [facility] Pharmacy Profile Note (Vancomycin Consult Pharmacy) 1 each OTHER UNSCH PRN PRN Reason: Pharmacy to dose Sodium Chloride (Ns Flush) 2 ml IV.FLUSH BID [facility] Sodium Chloride (Ns Flush) 2 ml IV.FLUSH PRN PRN PRN Reason: FLUSH AFTER USING IV ACCESS Allergies Allergy/AdvReac Type Severity Reaction Status Date / Time bee venom protein (honey bee) Allergy Severe Anaphylaxis Verified 07/29/18 23:16 prednisone Allergy Severe Blister Verified 07/29/18 23:16 Home Medications Medication Instructions Recorded Confirmed Type No Known Home Medications 08/19/18 08/19/18 History Exam Vital signs: Vital Signs 08/19/18 15:35 08/19/18 18:49 08/19/18 21:16 Temperature 98.0 F 97.9 F Pulse Rate 93 H 90 91 H Respiratory Rate 18 20 18 Blood Pressure 121/56 L 112/59 L 126/65 Pulse Oximetry 100 98 98 08/20/18 00:00 Temperature 97.6 F Pulse Rate 95 H Respiratory Rate 18 Blood Pressure 117/56 L Pulse Oximetry 100 Intake & Output 08/19/18 08/19/18 08/20/18 06:59 18:59 06:59 Intake Total 617.5 / 617.5 Balance 617.5 / 617.5 Weight 107.955 kg 107.4 kg Intake: IV 617.5 / 617.5 Zosyn 3.375 GM Premix 50 ML @ 100 / 100 100 mls/hr IV.SIG Q6H [facility] Rx#: [id number] Vancomycin Inj 1,750 MG In NS 517.5 / 517.5 Inj 500 ML @ 250 mls/hr IV.SIG ONCE ONE Rx#:[id number] Other: Date of Last Bowel Movement 08/18/18 Weight On Admission 107.955 kg Narrative: GENERAL: Patient lying in bed. Appears comfortable. Alert and oriented 3. SKIN: Patient with scaly, red rash over bilateral legs, trunk, arms, worse on extremities. HEAD: Atraumatic. Normocephalic. EYES: Pupils equal and round. No scleral icterus. No injection or drainage. ENT: No nasal bleeding or discharge. Mucous membranes pink and moist. NECK: Trachea midline. No JVD. CARDIOVASCULAR: Regular rate and rhythm. RESPIRATORY: No accessory muscle use. Clear to auscultation. Breath sounds equal bilaterally. GASTROINTESTINAL: Abdomen soft, non-tender, nondistended. Hepatic and splenic margins not palpable. MUSCULOSKELETAL: Extremities without clubbing, cyanosis, or edema. No obvious deformities. NEUROLOGICAL: Awake and alert. No obvious cranial nerve deficits. Motor grossly within normal limits. Five out of 5 muscle strength in the arms and legs. Normal speech. PSYCHIATRIC: Appropriate mood and affect; insight and judgment normal. Results - Labs CBC & Chem 7: 08/19/18 16:59 08/19/18 16:56 Labs: Short CBC 08/19/18 Range/Units 16:59 WBC 9.0 (4.0-11.0) th/mm3 Hgb 9.8 L (11.6-15.3) gm/dL Hct 30.5 L (35.0-46.0) % Plt Count 332 (150-450) th/mm3 [facility] 08/19/18 16:56 Sodium 141 Potassium 3.7 Chloride 107 Carbon Dioxide 25.2 BUN 7 Creatinine 0.90 Calcium 7.5 L Liver Function 08/19/18 Range/Units 16:56 Total Bilirubin 0.3 (0.2-1.0) mg/dL AST 11 L (15-37) U/L ALT 12 (10-53) U/L Alkaline Phosphatase 72 (45-117) U/L Albumin 2.2 L (3.4-5.0) g/dL Urine 08/19/18 Range/Units 17:40 Urine Color Yellow (Yellw/Straw) Urine Clarity Cloudy H (Clear) Urine pH 6.0 (5.0-8.5) Ur Specific [place] 1.008 (1.002-1.035) Urine Protein Negative (Neg-Trace) mg/dL Urine Glucose (UA) Negative (Negative) mg/dL - Imaging Impressions Chest X-Ray 08/19/18 16:41 CONCLUSION: No evidence of acute cardiopulmonary process. Caprini VTE Risk Assessment Caprini VTE Risk Assessment: No/Low Risk (score <= 1) Caprini Risk Assessment Model: Point Value = 1 Point Value = 2 Point Value = 3 Point Value = 5 Age 41-60 Minor surgery BMI > 25 kg/m2 Swollen legs Varicose veins or History of unexplained or recurrent spontaneous Oral contraceptives or hormone replacement Sepsis (< 1 month) Serious lung disease, including pneumonia (< 1 month) Abnormal pulmonary function Acute myocardial infarction Congestive heart failure (< 1 month) History of inflammatory bowel disease Medical patient at bed rest Age 61-74 Arthroscopic surgery Major open surgery (> 45 min) Laparoscopic surgery (> 45 min) Malignancy Confined to bed (> 72 hours) Immobilizing plaster cast Central venous access Age >= 75 History of VTE Family history of VTE Factor V Leiden Prothrombin [id number] Lupus anticoagulant Anticardiolipin antibodies Elevated serum homocysteine Heparin-induced thrombocytopenia Other congenital or acquired thrombophilia Stroke (< 1 month) Elective arthroplasty Hip, pelvis, or leg fracture Acute spinal cord injury (< 1 month) Prophylaxis Regimen: Total Risk Factor Score Risk Level Prophylaxis Regimen 0-1 Low Early ambulation 2 Moderate Order ONE of the following: *Sequential Compression Device (SCD) *Heparin 5000 units SQ BID 3-4 Higher Order ONE of the following medications: *Heparin 5000 units SQ TID *Enoxaparin/Lovenox 40 mg SQ daily (WT < 150 kg, CrCl > 30 mL/min) *Enoxaparin/Lovenox 30 mg SQ daily (WT < 150 kg, CrCl > 10-29 mL/min) *Enoxaparin/Lovenox 30 mg SQ BID (WT < 150 kg, CrCl > 30 mL/min) AND/OR *Sequential Compression Device (SCD) 5 or more Highest Order ONE of the following medications: *Heparin 5000 units SQ TID (Preferred with Epidurals) *Enoxaparin/Lovenox 40 mg SQ daily (WT < 150 kg, CrCl > 30 mL/min) *Enoxaparin/Lovenox 30 mg SQ daily (WT < 150 kg, CrCl > 10-29 mL/min) *Enoxaparin/Lovenox 30 mg SQ BID (WT < 150 kg, CrCl > 30 mL/min) AND *Sequential Compression Device (SCD) Assessment and Plan - Plan //Acute bilateral upper and lower extremity rash //Possible cellulitis with secondary infection Cultures ordered by the ER are pending. Continue broad-spectrum antibiotics Infectious disease to be consulted. I have informed patient general treatment for this should be IV steroids. She does not want to do IV steroids due to previous reaction to prednisone. Informed patient that we do not have dermatology, rheumatology insulation manager for the hospital and that she may be better served at a tertiary care center with these consultants available = We will request biopsy records from [facility]. //Acute anemia. Hemoglobin 9 point. No signs of bleeding. Likely anemia of inflammation/autoimmune disease. We will continue to monitor. Discussed Condition With: Patient, nurse, ED physician. H&P: Quality - VTE Deep Vein Thrombosis/Pulmonary Embolism Present on Admission: No
[2018-08-20] MEDS: Morphine Inj 4 MG/ML Vial IV.PUSH PRN ×3 (08:35→20:31)
[2018-08-20] MEDS: Sodium Chloride 0.9% 2 ML Flush BID IV.FLUSH SCH ×2 (08:36→20:31)
[2018-08-20] MEDS ORDERED: Vancomycin Inj 1,500 MG in Sodium Chlor 0.9% Inj 500 ML IV.SIG SCH (09:00)
--- NOTE | 2018-08-20 13:08 | P.CONID ---
History of Present Illness Service: ID Consult date: 08/20/18 Requesting Physician: Peter Hodge Reason for Consult: cellulitis Primary Care Provider: Krissy Gallardo Family Provider: Krissy Gallardo History of Present Illness: 48 yo F known to me from her previous admission Pt has been diagnosed with psoriasis clinically few yrs ago but no f/u 2/2 lack of insurance She presents with a flare up that was thought to be psoriasis last time in [place] and she had vir strep bacteremia and extreme leukocysotis (30+), responded to MTX After d/c she went to [facility] and was transrefd to [facility] where her MTX was stopped and she had LUE biosy done. It whoed neutrophilic dermotosis Sweet sd vs drug reaction She was on clindamycin @ that time She was sent to ER after presenting to her primary, though according to her her edema and redness improved She is afebrile and WBC is WNL Review of Systems All other systems reviewed negative except as stated in HPI [facility] - History History Provided By: Patient - Medical History Medical History: Medical History (Last Reviewed 08/20/18 @ 19:21 by Brenda Baca MD) Psoriasis Psoriatic arthritis - Surgical History Surgical History: Surgical History (Last Reviewed 08/20/18 @ 19:21 by Brenda Baca MD) History of eye surgery History of tonsillectomy - Family History Family History: Family History (Last Reviewed 08/20/18 @ 19:21 by Brenda Baca MD) Brother Psoriasis - Social History I have reviewed the patient's Social History: Yes - Tobacco History Second Hand Smoke Exposure: No Tobacco Use In Past 30 Days: Yes Smoking Status: Former smoker Tobacco Type: Cigarettes - Alcohol History How Often Do You Have a Drink Containing Alcohol: Never - Substance Use History Substance History: No History of Abuse - Travel History Recent Travel in the [place] Within the Last 8 Weeks: No Recent Travel Out of the Country Within the Last 8 Weeks: No - Immunization History Tetanus Immunization: Unsure Hx Influenza Vaccine This Season: No Medications and Allergies Active Medications: Active Medications Diphenhydramine HCl (Benadryl) 25 mg PO Q6H PRN PRN Reason: ITCHING Last Admin: 08/20/18 08:36 Dose: 25 mg Piperacillin/Tazobactam/Dextrose (Zosyn 3.375 Gm Premix) 50 mls @ 100 mls/hr IV.SIG Q6H [facility] Last Admin: 08/20/18 12:35 Dose: 100 mls/hr Vancomycin HCl 1,500 mg/ (Sodium Chloride) 515 mls @ 250 mls/hr IV.SIG Q12H [facility] Last Infusion: 08/20/18 12:35 Dose: Infused Miscellaneous Information ([facility] Ordered Lab Info) 0 each OTHER ONCE ONE Stop: 08/21/18 08:46 Morphine Sulfate (Morphine Inj) 2 mg IV.PUSH Q3H PRN PRN Reason: pain 1 to 10 Last Admin: 08/20/18 08:35 Dose: 2 mg Multivitamins (Theragran) 1 tab PO DAILY [facility] Last Admin: 08/20/18 08:36 Dose: 1 tab Pharmacy Profile Note (Vancomycin Consult Pharmacy) 1 each OTHER UNSCH PRN PRN Reason: Pharmacy to dose Sodium Chloride (Ns Flush) 2 ml IV.FLUSH BID [facility] Last Admin: 08/20/18 08:36 Dose: 2 ml Sodium Chloride (Ns Flush) 2 ml IV.FLUSH PRN PRN PRN Reason: FLUSH AFTER USING IV ACCESS Allergies Allergy/AdvReac Type Severity Reaction Status Date / Time bee venom protein (honey bee) Allergy Severe Anaphylaxis Verified 07/29/18 23:16 prednisone Allergy Severe Blister Verified 07/29/18 23:16 Home Medications Medication Instructions Recorded Confirmed Type No Known Home Medications 08/19/18 08/19/18 History Exam Vital signs: Vital Signs 08/19/18 15:35 08/19/18 18:49 08/19/18 21:16 Temperature 98.0 F 97.9 F Pulse Rate 93 H 90 91 H Respiratory Rate 18 20 18 Blood Pressure 121/56 L 112/59 L 126/65 Pulse Oximetry 100 98 98 08/20/18 00:00 08/20/18 04:00 08/20/18 08:00 Temperature 97.6 F 97.8 F 98.1 F Pulse Rate 95 H 89 90 Respiratory Rate 18 18 18 Blood Pressure 117/56 L 129/63 94/53 L Pulse Oximetry 100 97 96 08/20/18 09:00 08/20/18 12:00 Temperature 98.0 F Pulse Rate 84 93 H Respiratory Rate 20 Blood Pressure 98/53 L Pulse Oximetry 99 Intake & Output 08/19/18 08/20/18 08/20/18 18:59 06:59 18:59 Intake Total 667.5 / 667.5 515 / 515 Balance 667.5 / 667.5 515 / 515 Weight 107.955 kg 106.3 kg Intake: IV 667.5 / 667.5 515 / 515 Zosyn 3.375 GM Premix 50 ML @ 150 / 150 100 mls/hr IV.SIG Q6H [facility] Rx#: [id number] Vancomycin Inj 1,500 MG In NS 517.5 / 517.5 515 / 515 Inj 500 ML @ 250 mls/hr IV.SIG Q12H [facility] Rx#:[id number] Other: # Voids 3 Date of Last Bowel Movement 08/18/18 08/18/18 Weight On Admission 107.955 kg - Constitutional no acute distress, morbidly obese - Routine HEENT Exam Head: Present: normocephalic, atraumatic Eye: Present: EOMI, PERRL ENT: Present: mucous membranes moist, oropharynx clear - Routine Neck Exam Present: supple, full ROM - Routine Respiratory Exam Present: CTA bilaterally. Absent: accessory muscle use, rales, respiratory distress, rhonchi - Routine Cardiovascular Exam Present: RRR, S1, S2. Absent: murmur, gallop, rubs - Routine Abdominal Exam Present: soft, normoactive bowel sounds. Absent: tenderness, distended, organomegaly, mass - Routine Extremities Exam Present: edema, joint swelling. Absent: cyanosis, clubbing Comments: Marked joint deformities in fingers, toes b/l - Routine Skin Exam Present: erythema (diffuse), dry (cracked ) Comments: Pt is with diffuse confluent erytherodermia and cracked skijn and peeling in sheets. Arms affected the wortst, but slo legs, torso, abdomen and neck involved. Face is spared. Mucosae not involved - Routine Neurological Exam Present: alert, oriented X3, CN II-XII intact, moving all extremities, vision grossly intact, hearing grossly intact - Routine Psychiatric Exam Present: normal affect, normal thought process, cooperative Results - Labs CBC & Chem 7: 08/19/18 16:59 08/19/18 16:56 Labs: Laboratory Results - last 24 hr 08/19/18 08/19/18 08/19/18 16:56 16:56 16:59 WBC 9.0 RBC 3.75 L Hgb 9.8 L Hct 30.5 L MCV 81.4 MCH 26.0 L MCHC 32.0 RDW 17.4 H Plt Count 332 MPV 7.9 Neut % (Auto) 62.7 Lymph % (Auto) 15.0 [place] % (Auto) 12.4 H Eos % (Auto) 8.8 H Baso % (Auto) 1.1 Neut # (Auto) 5.6 Lymph # (Auto) 1.3 [place] # (Auto) 1.1 H Eos # (Auto) 0.8 H Baso # (Auto) 0.1 WBC Differential . Differential Comment Auto diff final PT INR APTT Sodium 141 Potassium 3.7 Chloride 107 Carbon Dioxide 25.2 Anion Gap 9 BUN 7 Creatinine 0.90 Estimated GFR 67 L Random Glucose 124 H Lactic Acid 3.1 H Calcium 7.5 L Total Bilirubin 0.3 AST 11 L ALT 12 Alkaline Phosphatase 72 Total Protein 5.7 L Albumin 2.2 L Urine Color Urine Clarity Urine pH Ur Specific [place] Urine Protein Urine Glucose (UA) Urine Ketones Urine Occult Blood Urine Nitrate Urine Bilirubin Urine Urobilinogen Ur Leukocyte Esterase Urine RBC Urine WBC Ur Squamous Epith Cells Urine Bacteria Urine Mucus Micro UA Comment Ur Microscopic Review Urine Culture Comments 08/19/18 08/19/18 08/19/18 16:59 17:40 20:26 WBC RBC Hgb Hct MCV MCH MCHC RDW Plt Count MPV Neut % (Auto) Lymph % (Auto) [place] % (Auto) Eos % (Auto) Baso % (Auto) Neut # (Auto) Lymph # (Auto) [place] # (Auto) Eos # (Auto) Baso # (Auto) WBC Differential Differential Comment PT 11.2 INR 1.1 APTT 25.4 Sodium Potassium Chloride Carbon Dioxide Anion Gap BUN Creatinine Estimated GFR Random Glucose Lactic Acid 1.6 Calcium Total Bilirubin AST ALT Alkaline Phosphatase Total Protein Albumin Urine Color Yellow Urine Clarity Cloudy H Urine pH 6.0 Ur Specific [place] 1.008 Urine Protein Negative Urine Glucose (UA) Negative Urine Ketones Negative Urine Occult Blood Moderate H Urine Nitrate Negative Urine Bilirubin Negative Urine Urobilinogen Less than 2 Ur Leukocyte Esterase Small H Urine RBC 3 Urine WBC 6 H Ur Squamous Epith Cells 14 Urine Bacteria Rare H Urine Mucus Few H Micro UA Comment Culture not ind Ur Microscopic Review Not Reportable Urine Culture Comments Culture not ind - Imaging Impressions Chest X-Ray 08/19/18 16:41 CONCLUSION: No evidence of acute cardiopulmonary process. Assessment and Plan - Plan Sweet syndrome ? Underlying psoriasis No e/o cellulitis Viridans strep bacteremia complete 14 days of tx for bacteremia (CFTX) - dc Rocephine dc [facility] Hands Xray to look for erosions RF
[2018-08-20] MEDS ORDERED: Acetaminophen 500 MG Tablet PO PRN (18:38)
--- NOTE | 2018-08-20 18:39 | P.PNADD ---
Addendum to Inpatient Note Additional information: Patient seen and examined. Patient has diffuse erythematous skin finding from neck down to her toes. She denies any fever or chills. She was evaluated by infectious disease. I discussed with infectious disease attending who believes patient has a sweet syndrome. Will wait for further recommendations from infectious disease. Currently patient is on vancomycin and Zosyn. Will change pain meds to acetaminophen, [place], morphine as needed.
[2018-08-20 22:04] LABS: Acetaminophen 2.5 mcg/mL (10.0-30.0)
--- NOTE | 2018-08-20 23:29 | XR ---
EXAM DATE: 08/20/2018 12:00 AM EDT AGE/SEX: 48 years / Female INDICATIONS: Left hand pain, arthritis. CLINICAL DATA: This is the patient's initial encounter. Patient reports that signs and symptoms have been present for 1 week and indicates a pain score of 10/10. MEDICAL/SURGICAL HISTORY: Arthritis. None. COMPARISON: No prior exams available for comparison. FINDINGS: Diffuse bony mineralization. Dislocation of the thumb at the metacarpophalangeal joint with marked er osion of the thumb metacarpal head and neck. Marked flexion of all of the other digits. Moderate-size d marginal bone erosions of the second through fifth metacarpal heads. Possible dislocation of the possible dislocation of the small finger proximal phalanx at the MCP join t. Apparent dislocation/subluxation of the proximal carpal row at the radiocarpal joint. CONCLUSION: 1. Severe erosive arthropathy of the hand with severe bone erosion at the thumb metacarpal head. Dis location of the thumb MCP joint and possible dislocation of fifth MCP joint and radiocarpal joint. 2. Severe diffuse bony mineralization. Electronically signed by: Sherwin Nichols MD 08/20/2018 11:27 PM EDT
--- NOTE | 2018-08-20 23:33 | XR ---
EXAM DATE: 08/20/2018 12:00 AM EDT AGE/SEX: 48 years / Female INDICATIONS: Right hand pain, arthritis. CLINICAL DATA: This is the patient's initial encounter. Patient reports that signs and symptoms have been present for 1 day and indicates a pain score of 10/10. MEDICAL/SURGICAL HISTORY: Arthritis. None. COMPARISON: No prior exams available for comparison. FINDINGS: 3 views of the right hand. Severe diffuse bony mineralization. Flexion of all of the digits limiting evaluation of the phalanges. There is volar dislocation of the index finger proximal interphalangeal joint. Prominent bone erosion of the distal pole of the index finger proximal phalanx. Small margina l bone erosions at all of the metacarpal heads. Volar subluxation of the thumb proximal phalanx at th e MCP joint. Extensive erosion of the carpal bones and severe narrowing of the radiocarpal joint. Sev ere bone erosion at the distal radioulnar joint. CONCLUSION: 1. Severe erosive arthropathy of the hand and wrist. 2. Severe diffuse bone demineralization. Electronically signed by: Sherwin Nichols MD 08/20/2018 11:31 PM EDT
[2018-08-21] MEDS: Sodium Chloride 0.9% 2 ML Flush BID IV.FLUSH SCH ×2 (08:04→20:03)
[2018-08-21] MEDS ORDERED: Pharmacy Ordered Lab Info OTHER ONE (08:45)
--- NOTE | 2018-08-21 16:18 | P.PN ---
Subjective Interval history: Follow-up sweet syndrome/questionable arthritis psoriatic flareup August 21, 2018-patient seen and examined with significant skin desquamation , uncontrollable pain to upper and lower extremities as well as overall generalized body discussed with patient and about the need for follow- up at tertiary center where she can be seen by commercial leasing agent, analysis tester Physical Exam Vital signs: Vital Signs 08/20/18 20:00 08/20/18 23:50 08/21/18 00:00 Temperature 98 F 98.1 F Pulse Rate 103 H 97 H Respiratory Rate 18 16 18 Blood Pressure 129/63 126/64 Pulse Oximetry 98 98 08/21/18 02:01 08/21/18 04:00 08/21/18 04:17 Temperature 98.8 F Pulse Rate 97 H Respiratory Rate 16 18 16 Blood Pressure 111/52 L Pulse Oximetry 100 08/21/18 06:14 08/21/18 08:00 08/21/18 12:00 Temperature 99.3 F 97.8 F Pulse Rate 98 H 95 H Respiratory Rate 18 16 16 Blood Pressure 100/52 L 104/54 L Pulse Oximetry 95 99 Intake & Output 08/20/18 08/21/18 08/21/18 18:59 06:59 18:59 Intake Total 1575 / 1575 Balance 1575 / 1575 Weight 111.2 kg Intake: IV 615 / 615 Zosyn 3.375 GM Premix 50 ML @ 100 / 100 100 mls/hr IV.SIG Q6H [facility] Rx#: [id number] Vancomycin Inj 1,500 MG In NS 515 / 515 Inj 500 ML @ 250 mls/hr IV.SIG Q12H [facility] Rx#:[id number] Oral 960 / 960 Other: # Voids 3 3 Date of Last Bowel Movement 08/18/18 08/19/18 Narrative: GENERAL: Mild distress SKIN: Significant generalized skin desquamation HEAD: Normocephalic. EYES: No scleral icterus. No injection or drainage. NECK: Supple, trachea midline. No JVD or lymphadenopathy. CARDIOVASCULAR: Regular rate and rhythm without murmurs, gallops, or rubs. RESPIRATORY: Breath sounds equal bilaterally. No accessory muscle use. GASTROINTESTINAL: Abdomen soft, non-tender, nondistended. MUSCULOSKELETAL: No cyanosis, or edema. BACK: Nontender without obvious deformity. No CVA tenderness. Results - Labs CBC & Chem 7: 08/19/18 16:59 08/19/18 16:56 Laboratory Results - last 24 hr 08/20/18 20:50 Acetaminophen 2.5 L Rheumatoid Factor Scrn Negative Rheumatoid Factor Titer Not Reportable Microbiology 08/19/18 16:59 Blood - Peripheral Aerobic Blood Culture - Preliminary No growth in 2 days 08/19/18 16:59 Blood - Peripheral Anaerobic Blood Culture - Preliminary No growth in 2 days 08/19/18 16:59 Blood - Peripheral Aerobic Blood Culture - Preliminary No growth in 2 days 08/19/18 16:59 Blood - Peripheral Anaerobic Blood Culture - Preliminary No growth in 2 days - Imaging Impressions Hand X-Ray 08/20/18 00:00 CONCLUSION: 1. Severe erosive arthropathy of the hand with severe bone erosion at the thumb metacarpal head. Dislocation of the thumb MCP joint and possible dislocation of fifth MCP joint and radiocarpal joint. 2. Severe diffuse bony mineralization. Hand X-Ray 08/20/18 00:00 CONCLUSION: 1. Severe erosive arthropathy of the hand and wrist. 2. Severe diffuse bone demineralization. Assessment and Plan - Plan 48-year-old female with Acute bilateral upper and lower extremity rash sweet Syndrome Appreciate input from ID, patient is currently off antibiotics as he does not appear to have any systemic infection or localized infection. Patient was informed by admitted [employer] Head on admission that general treatment for this should be IV steroids. She does not want to do IV steroids due to previous reaction to prednisone. Informed patient that we do not have dermatology, rheumatology ventilation mechanic for the hospital and that she may be better served at a tertiary care center with these consultants available -Continue with pain management Acute anemia of inflammation/autoimmune disease. -Continue to monitor H&H
[2018-08-21] MEDS: Nystatin 100,000 UNITS/GM Powder 15 GM Bottle TOPICAL SCH ×2 (17:13→20:03)
[2018-08-21] MEDS: Morphine Inj 4 MG/ML Vial IV.PUSH PRN (23:28)
[2018-08-22] MEDS: Nystatin 100,000 UNITS/GM Powder 15 GM Bottle TOPICAL SCH (08:47)
[2018-08-22] MEDS: Sodium Chloride 0.9% 2 ML Flush BID IV.FLUSH SCH (08:47)
--- NOTE | 2018-08-22 08:54 | P.PN ---
Subjective Interval history: Follow-up sweet syndrome/questionable arthritis psoriatic flareup -August 21, 2018-patient seen and examined with significant skin desquamation , uncontrollable pain to upper and lower extremities as well as overall generalized body discussed with patient and about the need for follow- up at tertiary center where she can be seen by transportation design engineer, needle control cheniller -August 22, 2018-patient seen and examined, no acute event overnight. Still with significant skin desquamation. Requesting narcotics on discharge. Afebrile. Physical Exam Vital signs: Vital Signs 08/21/18 12:00 08/21/18 16:00 08/21/18 20:00 Temperature 97.8 F 99.0 F 98.1 F Pulse Rate 95 H 104 H 100 H Respiratory Rate 16 18 18 Blood Pressure 104/54 L 98/50 L 89/44 L Pulse Oximetry 99 97 98 08/21/18 22:08 08/22/18 00:00 08/22/18 04:00 Temperature 98.3 F 98 F Pulse Rate 94 H 91 H Respiratory Rate 18 18 Blood Pressure 103/53 L 95/56 L 90/52 L Pulse Oximetry 97 98 Intake & Output 08/21/18 08/22/18 08/22/18 18:59 06:59 18:59 Intake Total 600 / 600 Balance 600 / 600 Weight 111.2 kg Intake: Oral 600 / 600 Other: # Voids 2 2 Date of Last Bowel Movement 08/20/18 Narrative: GENERAL: Mild distress SKIN: Significant generalized skin desquamation HEAD: Normocephalic. EYES: No scleral icterus. No injection or drainage. NECK: Supple, trachea midline. No JVD or lymphadenopathy. CARDIOVASCULAR: Regular rate and rhythm without murmurs, gallops, or rubs. RESPIRATORY: Breath sounds equal bilaterally. No accessory muscle use. GASTROINTESTINAL: Abdomen soft, non-tender, nondistended. MUSCULOSKELETAL: No cyanosis, or edema. BACK: Nontender without obvious deformity. No CVA tenderness. Results - Labs CBC & Chem 7: 08/19/18 16:59 08/19/18 16:56 Microbiology 08/19/18 16:59 Blood - Peripheral Aerobic Blood Culture - Preliminary No growth in 2 days 08/19/18 16:59 Blood - Peripheral Anaerobic Blood Culture - Preliminary No growth in 2 days 08/19/18 16:59 Blood - Peripheral Aerobic Blood Culture - Preliminary No growth in 2 days 08/19/18 16:59 Blood - Peripheral Anaerobic Blood Culture - Preliminary No growth in 2 days - Procedures None Assessment and Plan - Assessment (1) Psoriatic arthritis Code(s): L40.50 - Arthropathic psoriasis, unspecified Status: Acute - Plan 48-year-old female with Acute bilateral upper and lower extremity rash sweet Syndrome Appreciate input from ID, patient is currently off antibiotics as he does not appear to have any systemic infection or localized infection. Patient was informed by admitted Digital Photo Printer on admission that general treatment for this should be IV steroids. She does not want to do IV steroids due to previous reaction to prednisone. Informed patient that we do not have dermatology, rheumatology biofuels production manager for the hospital and that she may be better served at a tertiary care center with these consultants available -Continue with pain management -Will discharge patient home today Acute anemia of inflammation/autoimmune disease. -Continue to monitor H&H E-[facility] Prescription Drug Monitoring Database has been queried and verified prior to prescribing the controlled substance. Acute pain exception: This patient has normal, predicted, physiological, and time limited response to an adverse mechanical stimulus associated with surgery , trauma, or acute illness as described in my notes. There is a lack of alternative treatment options other than to include the prescribed narcotic treatment for this condition.
--- NOTE | 2018-08-22 09:07 | P.DS ---
Date of admission: 08/19/18 18:46 Primary care physician: Krissy Gallardo Brief History from admission: 48-year-old female with a history of psoriatic arthritis who presents with a one -month history of progressively worsening whole body erythematous scaly rash, associated constant burning pain, predominantly in bilateral legs which are particularly affected. Patient initially presented to [place] at the beginning of this month, was found to have strep viridans bacteremia, and discharged home on clindamycin which she did not continue. Patient went to [facility] who then sent her to [facility] where she had a biopsy that was reportedly negative for José Miguel Ady's, and she was told to follow-up with primary care. She saw a primary care today who told her to present to the hospital. Patient reports occasional chills, generalized fatigue. Denies any chest pain or shortness of breath. Denies diarrhea, nausea, vomiting. DS: Diagnosis - Discharge Diagnosis (1) Psoriatic arthritis Status: Acute DS: Medications - Discharge Medications Prescriptions: hydrocodone-acetaminophen [[place]] 1 tab PO Q6HR PRN #24 tab PRN Reason: Acute Pain DS: Summary Hospital Course: In hospital, patient was treated for: Acute bilateral upper and lower extremity rash sweet Syndrome Appreciate input from ID, patient is currently off antibiotics as he does not appear to have any systemic infection or localized infection. Patient was informed by admitted Water Resources Engineer on admission that general treatment for this should be IV steroids. She does not want to do IV steroids due to previous reaction to prednisone. Informed patient that we do not have dermatology, rheumatology asset protection detective for the hospital and that she may be better served at a tertiary care center with these consultants available -Treated with pain management Acute anemia of inflammation/autoimmune disease. -Continue to monitor H&H - Time Spent with Patient Total time spent providing and/or coordinating discharge services: Less than 30 minutes - Quality: VTE Deep Vein Thrombosis/Pulmonary Embolism Present on Admission: No Exam Vital signs: Vital Signs 08/21/18 12:00 08/21/18 16:00 08/21/18 20:00 Temperature 97.8 F 99.0 F 98.1 F Pulse Rate 95 H 104 H 100 H Respiratory Rate 16 18 18 Blood Pressure 104/54 L 98/50 L 89/44 L Pulse Oximetry 99 97 98 08/21/18 22:08 08/22/18 00:00 08/22/18 04:00 Temperature 98.3 F 98 F Pulse Rate 94 H 91 H Respiratory Rate 18 18 Blood Pressure 103/53 L 95/56 L 90/52 L Pulse Oximetry 97 98 Intake & Output 08/21/18 08/22/18 08/22/18 18:59 06:59 18:59 Intake Total 600 / 600 Balance 600 / 600 Weight 111.2 kg Intake: Oral 600 / 600 Other: # Voids 2 2 Date of Last Bowel Movement 08/20/18 Narrative: GENERAL: Mild distress SKIN: Significant generalized skin desquamation HEAD: Normocephalic. EYES: No scleral icterus. No injection or drainage. NECK: Supple, trachea midline. No JVD or lymphadenopathy. CARDIOVASCULAR: Regular rate and rhythm without murmurs, gallops, or rubs. RESPIRATORY: Breath sounds equal bilaterally. No accessory muscle use. GASTROINTESTINAL: Abdomen soft, non-tender, nondistended. MUSCULOSKELETAL: No cyanosis, or edema. BACK: Nontender without obvious deformity. No CVA tenderness. Results Procedures completed during hospitalization: None Labs on day of discharge: Preliminary micro results at discharge 08/19/18 16:59 Aerobic Blood Culture - Preliminary Blood - Peripheral No growth in 2 days Anaerobic Blood Culture - Preliminary No growth in 2 days 08/19/18 16:59 Aerobic Blood Culture - Preliminary Blood - Peripheral No growth in 2 days Anaerobic Blood Culture - Preliminary No growth in 2 days - Impressions ITS Impressions Chest X-Ray 08/19/18 16:41 CONCLUSION: No evidence of acute cardiopulmonary process. Hand X-Ray 08/20/18 00:00 CONCLUSION: 1. Severe erosive arthropathy of the hand and wrist. 2. Severe diffuse bone demineralization. Discharge Plan - Discharge Disposition Patient Disposition: Discharge Home - Discharge Condition Condition: Stable - Discharge Order Discharge Orders: Discharge Order (Routine); Ordered 08/22/18 Ordered By: Too Mckeon - Physicians Team Primary Care Provider: Krissy Gallardo Attending Provider: Too Mckeon Other Providers: Brenda Baca MD
[2018-08-22 10:17] VITALS: BP 98/46; PULSE 97; RESP 16; TEMP 97.8; O2SAT 93
[2018-08-22 15:25] LABS: Anti-Nuclear Antibody Screen Pos (Neg)
== END 2018-08-22 12:07 | disposition home or self-care (01) ==
LOC: NEPE 15:27 → NEDA 18:46 → N05 21:06
PROVIDERS: ADMIT Hospitalist; ATTEND Hospitalist